=== PATIENT | female | born 1955 | race American Indian/Alaskan Native ===

== ENCOUNTER 2018-10-25 17:05 | Inpatient (IN) | payer BC ==
--- NOTE | 2018-10-25 17:16 | Emergency Department Report ---
Blank Doc - Documentation Documentation: 63 y/o female referred to the ER by her Oncologist for admission. Concern for mets.
[2018-10-25 20:21] LABS: Basophils # (Auto) 0.1 K/mm3 (0.0-0.1); Basophils % (Auto) 1.1 % (0.0-1.8); Eosinophils % (Auto) 0.1 % (0.0-4.3); Hematocrit 46.1 % (30.3-42.9); Hemoglobin 15.5 gm/dl (10.1-14.3); Lymphocytes # (Auto) 1.6 K/mm3 (1.2-5.4); Lymphocytes % (Auto) 20.1 % (13.4-35.0); Mean Corpuscular HGB Conc 34 % (30-34); Mean Corpuscular Volume 93 fl (79-97); Monocytes % (Auto) 12.8 % (0.0-7.3); Platelet Count 203 K/mm3 (140-440); Red Blood Count 4.97 M/mm3 (3.65-5.03); Red Cell Distribution Width 15.8 % (13.2-15.2)
[2018-10-25 20:42] LABS: Alanine Aminotransferase 102 units/L (7-56); Albumin 2.8 g/dL (3.9-5); BUN/Creatinine Ratio 14; Blood Urea Nitrogen 11 mg/dL (7-17); Calcium 9.6 mg/dL (8.4-10.2); Hemolysis Index 35
--- NOTE | 2018-10-25 21:48 | Cat Scan Report ---
PROCEDURE: CT abdomen and pelvis with contrast. TECHNIQUE: Computerized axial tomography of the abdomen and pelvis was performed after the IV inject ion of iodinated nonionic contrast. CT DOSE LENGTH PRODUCT: 2465.4 mGycm HISTORY: Right upper quadrant abdominal pain. Outpatient ultrasound showed possible liver metastases. COMPARISONS: None. FINDINGS: There is a small pleural-based nodule located laterally in the right middle lobe. This is seen on star ge 11 of series 2. This measures 9.2 mm x 6.5 mm in cross-section. It is an indeterminate finding. Th ere are no pleural effusions. The heart size is normal. The breasts are incompletely imaged and I can not do a complete comparison from side to side. There is some solid tissue in the lower half of the l eft breast. There are some calcifications present. This could represent a breast neoplasm. The mass m easures approximately 4.1 cm x 2.1 cm in cross-section. Further evaluation is recommended. There are multiple focal masses of lower attenuation in the liver. The margins of these masses enhance. These a re consistent with extensive metastases. The gallbladder is present. There is no biliary dilatation. The pancreas appears normal. The spleen appears normal. The adrenal glands are not enlarged. Both kid neys appear normal in size and configuration. The abdominal aorta has a normal caliber. There is athe rosclerotic calcification in the abdominal aorta and iliac arteries. There is no retroperitoneal sheri opathy. There are numerous diverticula in the descending colon and sigmoid colon. There are no signs of acute diverticulitis. A normal appendix is visible. The bladder, uterus and adnexal regions appear normal. There is a small amount of free fluid in the pelvis. The regional skeleton appears intact. IMPRESSION: Possible left breast neoplasm with further evaluation recommended. Small indeterminate n odule in the right middle lobe. Extensive metastatic disease involving the liver. Moderately severe l eft sided colonic diverticulosis. Small amount of free fluid in the pelvis. This document is electronically signed by Alton Doyle MD., Oct 25 2018 09:46:04 PM ET
--- NOTE | 2018-10-25 21:54 | Cat Scan Report ---
PROCEDURE: CT HEAD/BRAIN WO CON TECHNIQUE: Spiral CT imaging of the brain was obtained without IV contrast enhancement. HISTORY: headaches COMPARISONS: None FINDINGS: Brain: There is no evidence of intracranial hemorrhage. No parenchymal hemorrhage is seen. No mass lesions or mass effect is identified. No abnormal extra-axial fluid collections or masses are seen. There is mild nonspecific mineralization of the basal ganglia. There is some decreased density seen in the periventricular white matter without mass effect. This i s fairly symmetric and does not exhibit any mass effect consistent with gliosis probably on the basis of microvascular disease or white matter changes of aging. Ventricles: The ventricles are normal size and midline. Sulcal pattern and fissures are mildly promi nent.. Bone Windows: No evidence of fracture. Paranasal sinuses: Clear. Mastoid air cells: Clear. IMPRESSION: There is mild atrophy. Examination otherwise is unremarkable. This document is electronically signed by Link Urrutia MD., Oct 25 2018 09:52:35 PM ET
--- NOTE | 2018-10-25 22:47 | Emergency Department Report ---
ED Abdominal Pain HPI - General Chief Complaint: Medical Clearance Stated Complaint: REQUEST TO CHECK IN Time Seen by Provider: 10/25/18 18:22 Source: patient Mode of arrival: Ambulatory Limitations: No Limitations - History of Present Illness Initial Comments: Patient is a 63-year-old female who was sent in by Dr. Trujillo her seo specialist because of abnormal findings he found on an ultrasound of her abdomen. Patient sees Dr. 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 Patient had been complaining of some vague epigastric right upper quadrant discomfort. Dr. Johns was concerned after reviewing the ul trasound which showed an enlarged liver with multiple ill-defined hypoechoic area suspicious for hepatic metastases. Was also multiple gallstones and biliary sludge and thickening of the gallbladder wall. Patient had this ultrasound performed on October 17. Patient denies nausea vomiting diarrhea f don or chills Severity scale (0 -10): 0 - Related Data Allergies Allergy/AdvReac Type Severity Reaction Status Date / Time Penicillins Allergy Unknown Verified 10/25/18 17:06 ED Review of Systems ROS: Stated complaint: REQUEST TO CHECK IN Other details as noted in HPI Comment: All other systems reviewed and negative ED Past Medical Hx - Past Medical History Hx Hypertension: Yes Additional medical history: LESIONS ON LIVER/ GALLSTONES - Surgical History Additional Surgical History: ANKLE - Social History Smoking Status: Never Smoker Substance Use Type: None ED Physical Exam - General Limitations: No Limitations General appearance: alert, in no apparent distress - Head Head exam: Present: atraumatic, normocephalic - Eye Eye exam: Present: normal appearance - ENT ENT exam: Present: mucous membranes moist - Neck Neck exam: Present: normal inspection - Respiratory Respiratory exam: Present: normal lung sounds bilaterally. Absent: respiratory distress, wheezes, rales, rhonchi - Cardiovascular Cardiovascular Exam: Present: regular rate, normal rhythm. Absent: systolic murmur, diastolic murmur, rubs, gallop - GI/Abdominal GI/Abdominal exam: Present: soft, tenderness (mild tenderness of the ruq), normal bowel sounds. Absent: distended, guarding, rebound, rigid - Extremities Exam Extremities exam: Present: normal inspection - Back Exam Back exam: Present: normal inspection - Neurological Exam Neurological exam: Present: alert, oriented X3 - Psychiatric Psychiatric exam: Present: normal affect, normal mood - Skin Skin exam: Present: warm, dry, intact, normal color. Absent: rash ED Course Vital Signs 10/25/18 10/25/18 10/25/18 17:23 20:32 20:33 Temperature 98.0 F Pulse Rate 99 H 97 H Respiratory 16 18 Rate Blood Pressure 122/69 Blood Pressure 144/83 [Left] O2 Sat by Pulse 97 97 97 Oximetry 10/25/18 10/25/18 10/25/18 20:46 21:46 22:00 Temperature Pulse Rate Respiratory Rate Blood Pressure 144/83 146/86 129/79 Blood Pressure [Left] O2 Sat by Pulse 96 97 94 Oximetry ED Medical Decision Making - Lab Data Result diagrams: 10/25/18 19:49 10/25/18 19:49 Lab Results 10/25/18 10/25/18 Range/Units 19:49 19:49 WBC 8.1 (4.5-11.0) K/mm3 RBC 4.97 (3.65-5.03) M/mm3 Hgb 15.5 H (10.1-14.3) gm/dl Hct 46.1 H (30.3-42.9) % MCV 93 (79-97) fl MCH 31 (28-32) pg MCHC 34 (30-34) % RDW 15.8 H (13.2-15.2) % Plt Count 203 (140-440) K/mm3 Lymph % (Auto) 20.1 (13.4-35.0) % [place] % (Auto) 12.8 H (0.0-7.3) % Eos % (Auto) 0.1 (0.0-4.3) % Baso % (Auto) 1.1 (0.0-1.8) % Lymph # 1.6 (1.2-5.4) K/mm3 [place] # 1.0 H (0.0-0.8) K/mm3 Eos # 0.0 (0.0-0.4) K/mm3 Baso # 0.1 (0.0-0.1) K/mm3 Seg Neutrophils % 65.9 (40.0-70.0) % Seg Neutrophils # 5.4 (1.8-7.7) K/mm3 Sodium 136 L (137-145) mmol/L Potassium 4.7 (3.6-5.0) mmol/L Chloride 98.5 (98-107) mmol/L Carbon Dioxide 19 L (22-30) mmol/L Anion Gap 23 mmol/L BUN 11 (7-17) mg/dL Creatinine 0.8 (0.7-1.2) mg/dL Estimated GFR > 60 ml/min BUN/Creatinine Ratio 14 % Glucose 77 (65-100) mg/dL Calcium 9.6 (8.4-10.2) mg/dL Total Bilirubin 2.30 H (0.1-1.2) mg/dL AST 382 H (5-40) units/L ALT 102 H (7-56) units/L Alkaline Phosphatase 567 H (35-129) units/L Total Protein 7.2 (6.3-8.2) g/dL Albumin 2.8 L (3.9-5) g/dL Albumin/Globulin Ratio 0.6 % Lipase 57 (13-60) units/L - Radiology Data [facility] [address] [place] [address] Cat Scan Report Signed Patient: SKYE BAKER MR#: [id number] : 1955 Acct:[id number] Age/Sex: 63 / F ADM Date: 10/25/18 Loc: ED Attending Dr: Ordering Physician: CHAY ALLEN MD Date of Service: 10/25/18 Procedure(s): CT head/brain wo con Accession Number(s): [id number] cc: CHAY ALLEN MD PROCEDURE: CT HEAD/BRAIN WO CON TECHNIQUE: Spiral CT imaging of the brain was obtained without IV contrast enhancement. HISTORY: headaches COMPARISONS: None FINDINGS: Brain: There is no evidence of intracranial hemorrhage. No parenchymal hemorrhage is seen. No mass lesions or mass effect is identified. No abnormal extra-axial fluid collections or masses are seen. There is mild nonspecific mineralization of the basal ganglia. There is some decreased density seen in the periventricular white matter without mass effect. This is fairly symmetric and does not exhibit any mass effect consistent with gliosis probably on the basis of microvascular disease or white matter changes of aging. Ventricles: The ventricles are normal size and midline. Sulcal pattern and fissures are mildly prominent.. Bone Windows: No evidence of fracture. Paranasal sinuses: Clear. Mastoid air cells: Clear. IMPRESSION: There is mild atrophy. Examination otherwise is unremarkable. This document is electronically signed by Link Martinez MD., Oct 25 2018 09:52:35 PM ET Transcribed By: DFN Dictated By: LINK MARTINEZ MD Electronically Authenticated By: LINK MARTINEZ MD Signed Date/Time: 10/25/18 2154 [facility] [address] [place] [address] Cat Scan Report Signed Patient: SKYE BAKER MR#: [id number] : 1955 Acct:[id number] Age/Sex: 63 / F ADM Date: 10/25/18 Loc: ED Attending Dr: Ordering Physician: CHAY ALLEN MD Date of Service: 10/25/18 Procedure(s): CT abdomen pelvis w con Accession Number(s): [id number] cc: CHAY ALLEN MD PROCEDURE: CT abdomen and pelvis with contrast. TECHNIQUE: Computerized axial tomography of the abdomen and pelvis was performed after the IV injection of iodinated nonionic contrast. CT DOSE LENGTH PRODUCT: 2465.4 mGycm HISTORY: Right upper quadrant abdominal pain. Outpatient ultrasound showed possible liver metastases. COMPARISONS: None. FINDINGS: There is a small pleural-based nodule located laterally in the right middle lobe. This is seen on image 11 of series 2. This measures 9.2 mm x 6.5 mm in cross-section. It is an indeterminate findi ng. There are no pleural effusions. The heart size is normal. The breasts are incompletely imaged and I cannot do a complete comparison from side to side. There is some solid tissue in the lower half of the left breast. There are some calcifications present. This could represent a breast neoplasm. The mass measures approximately 4.1 cm x 2.1 cm in cross- section. Further evaluation is recommended. There are multiple focal masses of lower attenuation in the liver. The margins of these masses enhance. These are consistent with extensive metastases. The gallbladder is present. There is no biliary dilatation. The pancreas appears normal. The spleen appears normal. The adrenal glands are not enlarged. Both kidneys appear normal in size and configuration. The abdominal aorta has a normal caliber. There is atherosclerotic calcification in the abdominal aorta and iliac arteries. There is no retroperitoneal adenopathy. There are numerous diverticula in the descending colon and sigmoid colon. There are no signs of acute diverticulitis. A normal appendix is visible. The bladder, uterus and adnexal regions appear normal. There is a small amount of free fluid in the pelvis. The regional skeleton appears intact. IMPRESSION: Possible left breast neoplasm with further evaluation recommended. Small indeterminate nodule in the right middle lobe. Extensive metastatic disease involving the liver. Moderately severe left sided colonic diverticulosis. Small amount of free fluid in the pelvis. This document is electronically signed by Alton Zuniga MD., Oct 25 2018 09:46:04 PM ET Transcribed By: BART Dictated By: ALTON ZUNIGA MD Electronically Authenticated By: ALTON ZUNIGA MD Signed Date/Time: 10/25/182147 DD/ 27 TD/TT: 10/25/182127 - Medical Decision Making Patient's CT of abdomen and pelvis shows that she has hematocrit hepatomegaly with multiple metastatic lesions. Patient also has a large mass in the left lower breast. When has had the patient had any pain in this area she states that 2 nights ago while turning over in bed she did fill a sharp pain in the left breast. She points to the area that is consistent with the area of mass from CT. In speaking with Dr. Johns patient is to be admitted to the hospital for possible liver biopsy in the morning. Patient to be admitted to the hospitalist service under Dr. Chávez. Critical care attestation.: If time is entered above; I have spent that time in minutes in the direct care of this critically ill patient, excluding procedure time. ED Disposition Clinical Impression: Elevated transaminase level, Hyperbilirubinemia, Breast mass, Liver metastases Disposition: OP ADMIT IP TO THIS HOSP Is pt being admited?: Yes Does the pt Need Aspirin: No Condition: Stable Time of Disposition: 22:51
[2018-10-25 23:09] LABS: Bilirubin,Urine NEG (Negative); Blood,Urine NEG (Negative); Color,Urine Amber (Yellow); Mucus,Urine FEW /HPF; Protein,Urine <15 mg/dL mg/dL (Negative)
[2018-10-25] MEDS ORDERED: ZOFRAN IV PRN (23:25)
[2018-10-25] MEDS ORDERED: SODIUM CHLORIDE FLUSH SYRINGE 10 ML IV PRN (23:25)
[2018-10-25] MEDS ORDERED: MORPHINE IV PRN (23:27)
[2018-10-25] MEDS ORDERED: NACL 0.9% 1000 ML 1,000 ML IV SCH (23:45)
--- NOTE | 2018-10-26 | History and Physical Report ---
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 Trujillo to the ED for further evaluation with abdominal CT scan due to abnormal liver findings seen on abdominal ultrasound. She complained of left-sided headache of a month duration, which she rated 8-10. She also has intermittent epigastric pain and she reported noticing a lump in her left breast about 2 days ago. She denies nausea, vomiting, lightheadedness, blurry vision, syncope or loss of consciousness. No constipation, diarrhea, bleeding from any orifice, dysuria or frequency. No chest pain, shortness of breath, palpitation, fever, chills, sore throats, runny nose or congestion, leg swelling, orthopnea or PND. CT abdomen/pelvis done in the ED showed left breast mass suspicious for malignancy with metastasis to the liver. Per pt, her last mammogram was 5 years ago which was normal. She also reported that she had a breast biopsy around 2007 at [facility] which was reported as negative for malignancy. Onco logy recommended admitting the pt for possible biopsy in am due to the extensive disease. Past History Past Medical History: other (vitamin B12 deficiency) Past Surgical History: Other (right ankle surgery, breast biopsy) Social history: other (patient has a remote history of cigarette smoking. She quit more than 20 years ago. She has history of moderate alcohol consumption, she usually have a cocktail every day after work but quit 2 weeks ago. She admits to occasional marijuana use but stated that she quit 2 weeks ago) Family history: other (A grand-aunt had history of breast cancer at an unknown age. No other known family history of cancer) Medications and Allergies Allergies Allergy/AdvReac Type Severity Reaction Status Date / Time Penicillins Allergy Unknown Verified 10/25/18 17:06 Home Medications Medication Instructions Recorded Confirmed Last Taken Type Cyanocobalamin (Vitamin B-12) 5,000 mcg PO DAILY 10/25/18 10/25/18 Unknown History [Vitamin B12] Metoprolol [Lopressor] 25 mg PO BID 10/25/18 10/25/18 Unknown History Active Meds: Active Medications Acetaminophen (Tylenol) 650 mg PO Q4H PRN PRN Reason: Pain MILD(1-3)/Fever >100.5/BARNETT Enoxaparin Sodium (Lovenox) 40 mg SUB-Q QDAY HEENA Sodium Chloride (Nacl 0.9% 1000 Ml) 1,000 mls @ 100 mls/hr IV DIRECT HEENA Morphine Sulfate (Morphine) 2 mg IV Q4H PRN PRN Reason: Pain, Moderate (4-6) Ondansetron HCl (Zofran) 4 mg IV Q8H PRN PRN Reason: Nausea And Vomiting Sodium Chloride (Sodium Chloride Flush Syringe 10 Ml) 10 ml IV BID HEENA Sodium Chloride (Sodium Chloride Flush Syringe 10 Ml) 10 ml IV PRN PRN PRN Reason: LINE FLUSH Review of Systems All systems: negative (except as documented in the HPI, all other systems were reviewed and negative) Exam - Constitutional Vitals: Temp Pulse Resp BP Pulse Ox 98.0 F 97 H 18 129/79 94 10/25/18 17:23 10/25/18 20:33 10/25/18 20:33 10/25/18 22:00 10/25/18 22:00 General appearance: Present: no acute distress, well-nourished - EENT Eyes: Present: PERRL, EOM intact ENT: hearing intact, clear oral mucosa - Neck Neck: Present: supple, normal ROM - Respiratory Respiratory effort: normal Respiratory: bilateral: CTA - Cardiovascular Rhythm: regular Heart Sounds: Present: S1 & S2. Absent: rub, click - Extremities Extremities: pulses symmetrical, No edema Peripheral Pulses: within normal limits - Abdominal General gastrointestinal: Present: soft, tender (epigastric), non-distended, normal bowel sounds, hepatomegaly Female genitourinary: Present: deferred - Integumentary Integumentary: Present: clear, warm, dry - Musculoskeletal Musculoskeletal: gait normal, strength equal bilaterally - Psychiatric Psychiatric: appropriate mood/affect, intact judgment & insight - Neurologic Neurologic: CNII-XII intact, moves all extremities Results - Labs CBC & Chem 7: 10/25/18 19:49 10/25/18 19:49 Labs: Laboratory Last Values WBC 8.1 K/mm3 (4.5-11.0) 10/25/18 19:49 RBC 4.97 M/mm3 (3.65-5.03) 10/25/18 19:49 Hgb 15.5 gm/dl (10.1-14.3) H 10/25/18 19:49 Hct 46.1 % (30.3-42.9) H 10/25/18 19:49 MCV 93 fl (79-97) 10/25/18 19:49 MCH 31 pg (28-32) 10/25/18 19:49 MCHC 34 % (30-34) 10/25/18 19:49 RDW 15.8 % (13.2-15.2) H 10/25/18 19:49 Plt Count 203 K/mm3 (140-440) 10/25/18 19:49 Lymph % (Auto) 20.1 % (13.4-35.0) 10/25/18 19:49 [place] % (Auto) 12.8 % (0.0-7.3) H 10/25/18 19:49 Eos % (Auto) 0.1 % (0.0-4.3) 10/25/18 19:49 Baso % (Auto) 1.1 % (0.0-1.8) 10/25/18 19:49 Lymph # 1.6 K/mm3 (1.2-5.4) 10/25/18 19:49 [place] # 1.0 K/mm3 (0.0-0.8) H 10/25/18 19:49 Eos # 0.0 K/mm3 (0.0-0.4) 10/25/18 19:49 Baso # 0.1 K/mm3 (0.0-0.1) 10/25/18 19:49 Seg Neutrophils % 65.9 % (40.0-70.0) 10/25/18 19:49 Seg Neutrophils # 5.4 K/mm3 (1.8-7.7) 10/25/18 19:49 Sodium 136 mmol/L (137-145) L 10/25/18 19:49 Potassium 4.7 mmol/L (3.6-5.0) 10/25/18 19:49 Chloride 98.5 mmol/L (98-107) 10/25/18 19:49 Carbon Dioxide 19 mmol/L (22-30) L 10/25/18 19:49 Anion Gap 23 mmol/L 10/25/18 19:49 BUN 11 mg/dL (7-17) 10/25/18 19:49 Creatinine 0.8 mg/dL (0.7-1.2) 10/25/18 19:49 Estimated GFR > 60 ml/min 10/25/18 19:49 BUN/Creatinine Ratio 14 % 10/25/18 19:49 Glucose 77 mg/dL (65-100) 10/25/18 19:49 Calcium 9.6 mg/dL (8.4-10.2) 10/25/18 19:49 Total Bilirubin 2.30 mg/dL (0.1-1.2) H 10/25/18 19:49 AST 382 units/L (5-40) H 10/25/18 19:49 ALT 102 units/L (7-56) H 10/25/18 19:49 Alkaline Phosphatase 567 units/L (35-129) H 10/25/18 19:49 Total Protein 7.2 g/dL (6.3-8.2) 10/25/18 19:49 Albumin 2.8 g/dL (3.9-5) L 10/25/18 19:49 Albumin/Globulin Ratio 0.6 % 10/25/18 19:49 Lipase 57 units/L (13-60) 10/25/18 19:49 Urine Color [place] (Yellow) 10/25/18 22:34 Urine Turbidity Slightly-cloudy (Clear) 10/25/18 22:34 Urine pH 5.0 (5.0-7.0) 10/25/18 22:34 Ur Specific [place] 1.060 (1.003-1.030) H 10/25/18 22:34 Urine Protein <15 mg/dl mg/dL (Negative) 10/25/18 22:34 Urine Glucose (UA) Neg mg/dL (Negative) 10/25/18 22:34 Urine Ketones 20 mg/dL (Negative) 10/25/18 22:34 Urine Blood Neg (Negative) 10/25/18 22:34 Urine Nitrite Neg (Negative) 10/25/18 22:34 Urine Bilirubin Neg (Negative) 10/25/18 22:34 Urine Urobilinogen 4.0 mg/dL (<2.0) 10/25/18 22:34 Ur Leukocyte Esterase Neg (Negative) 10/25/18 22:34 Urine WBC (Auto) 2.0 /HPF (0.0-6.0) 10/25/18 22:34 Urine RBC (Auto) 10.0 /HPF (0.0-6.0) 10/25/18 22:34 U Epithel Cells (Auto) 9.0 /HPF (0-13.0) 10/25/18 22:34 Urine Mucus Few /HPF 10/25/18 22:34 - Imaging and Cardiology CT scan - abdomen: report reviewed CT Scan - head: report reviewed Assessment and Plan Assessment and plan: New possible left breast malignancy with liver metastasis -IR consulted for possible liver biopsy in am Chronic headaches -CT head negative for metastasis -On PRN narcotics Transaminitis -Likely due to the liver metastasis Metabolic acidosis -We'll hydrate patient and monitor her bicarbonate level Megaloblastic anemia due to vitamin B12 deficiency -Stable Patient will be placed in observation status with plan for discharge post liver biopsy. TIME SPENT: 35 minutes
[2018-10-26] MEDS: TYLENOL PO PRN ×2 (01:03→14:37)
[2018-10-26 05:37] LABS: Alanine Aminotransferase 91 units/L (7-56); Albumin 2.5 g/dL (3.9-5); BUN/Creatinine Ratio 18; Blood Urea Nitrogen 11 mg/dL (7-17); Calcium 9.6 mg/dL (8.4-10.2); Hemolysis Index 24
[2018-10-26] MEDS ORDERED: LOVENOX SUB-Q SCH (10:00)
[2018-10-26] MEDS ORDERED: SODIUM CHLORIDE FLUSH SYRINGE 10 ML IV SCH (10:00)
[2018-10-26] MEDS ORDERED: VERSED IV ONE (11:04)
[2018-10-26] MEDS ORDERED: SUBLIMAZE IV ONE (11:04)
[2018-10-26] MEDS ORDERED: SUBLIMAZE ONE (11:10)
[2018-10-26] MEDS ORDERED: XYLOCAINE 1% 20 mL ONE (11:16)
[2018-10-26] MEDS ORDERED: GELFOAM 12 X 7 TP ONE (11:25)
[2018-10-26] MEDS ORDERED: PNEUMOVAX 23 IM ONE (12:00)
[2018-10-26] MEDS ORDERED: AFLURIA QUAD 2018-2019 SYRINGE IM ONE (12:00)
[2018-10-26 12:33] VITALS: BP 138/81
--- NOTE | 2018-10-26 13:52 | Discharge Summary ---
Providers - Providers Date of Admission: 10/26/18 11:54 Attending physician: LEE ANGELO MD 10/25/18 23:30 Consult to Interventional Radiology [CONS] Routine Consulting Provider: LAURY MOULTON Reason For Exam: new metastatic liver disease for liver biopsy Place consult to:: DAHLIASULT WAS CALLED TO DR. MOULTON Notified:: BETTE Phone number called:: [phone] Was contact made?: Yes If yes, spoke with:: FADI Time called:: 10:30 Comment:: DANAE 10/26/18 04:34 Consult to Dietitian/Nutrition [CONS] Routine Physician Instructions: Reason For Exam: Reason for Consult: Malnutrition Primary care physician: DYLAN MICHAELS Hospitalization Condition: Stable Hospital course: 63 year old woman with history of megaloblastic anemia due to vitamin B12 deficiency who was sent by a pot lining supervisor to the hospital after evaluating an abnormal CT scan these two abnormal liver findings. The patient was admitted for liver biopsy. She had liver biopsy, procedures on eventful. She will follow up with her oncologist for results of the pathology Diagnosis liver Mass megaloblastic anemia Disposition: - TO HOME OR SELFCARE Time spent for discharge: 33 mins, Core Measure Documentation - Palliative Care Palliative Care/ Comfort Measures: Not Applicable - Core Measures Any of the following diagnoses?: none Exam - Constitutional Vitals: Temp Pulse Resp BP Pulse Ox 97.5 F L 84 21 138/81 95 10/26/18 07:21 10/26/18 12:32 10/26/18 12:32 10/26/18 12:32 10/26/18 12:32 General appearance: Present: no acute distress, well-nourished - EENT Eyes: Present: PERRL ENT: hearing intact, clear oral mucosa - Neck Neck: Present: supple, normal ROM - Respiratory Respiratory effort: normal Respiratory: bilateral: CTA - Cardiovascular Heart Sounds: Present: S1 & S2. Absent: rub, click - Extremities Extremities: pulses symmetrical, No edema Peripheral Pulses: within normal limits - Abdominal General gastrointestinal: Present: soft, non-tender, non-distended, normal bowel sounds Female genitourinary: Present: normal - Integumentary Integumentary: Present: clear, warm, dry - Musculoskeletal Musculoskeletal: gait normal, strength equal bilaterally - Psychiatric Psychiatric: appropriate mood/affect, intact judgment & insight - Neurologic Neurologic: CNII-XII intact, moves all extremities Plan Follow up with: DYLAN MICHAELS MD [Primary Care Provider] - 7 Days Prescriptions: oxyCODONE /ACETAMINOPHEN [Percocet 5/325] 1 tab PO Q6HR PRN #14 tablet PRN Reason: Pain
--- NOTE | 2018-10-26 15:43 | Cat Scan Report ---
Exam: CT-guided liver biopsy Clinical indication: Patient with diffusely metastatic disease D.: 10/26/18 Procedure: Following an explanation of the risks, benefits and alternatives; written informed consent was obtained. The patient will go to the CT suite and placed on position on the CT gantry. Initial bander operator image of the abdomen were performed at appropriate site was chosen. The patient's abdomen along the midline was prepped and draped in the usual sterile fashion. 1% Xylocaine was used for anesthesia. Using intermittent CT guidance, a 10 cm 17-gauge trocar needle was advanced adjacent to a mass in the liver. A 18-gauge biopsy needle was then used to obtain 2 core biopsies which were handed off to pathologist in attendance. The samples were determined to be adequate for pathologic analysis. The track was embolized with Gelfoam pledgets. The needle was then completely withdrawn and post procedure imaging demonstrated no significant hemoperitoneum. The patient tolerated the procedure well. There were no immediate post procedure complications. Conscious sedation was performed under the guidance radiologic nursing. Continuous cardiopulmonary monitoring was utilized. Impression: CT-guided liver biopsy with 2 core samples obtained and sent for pathologic analysis. The samples were determined to be adequate.
== END 2018-10-26 15:00 | disposition home or self-care (01) | DRG 436 ==
LOC: ED 17:05 → 2B-ACE 23:25 → OBSVTOIN 10-26 11:54
PROVIDERS: ADMIT Internal Medicine; ATTEND Internal Medicine
PROC: 0FB03ZX Excision of Liver, Percutaneous Approach, Diagnostic (ICD-10-PCS; principal; 2018-10-26)
PROC: 3E0234Z Introduction of Serum, Toxoid and Vaccine into Muscle, Percutaneous Approach (ICD-10-PCS; 2018-10-26)
DX: C78.7 Secondary malignant neoplasm of liver and intrahepatic bile duct (principal); E87.2 Acidosis; K76.89 Other specified diseases of liver; E80.6 Other disorders of bilirubin metabolism; I10 Essential (primary) hypertension; C80.1 Malignant (primary) neoplasm, unspecified; R74.0 Nonspecific elevation of levels of transaminase and lactic acid dehydrogenase [LDH]; D53.1 Other megaloblastic anemias, not elsewhere classified; Z88.0 Allergy status to penicillin; Z23 Encounter for immunization
CPT/HCPCS: 36415; 47000; 70450; 74177; 77012; 80053; 81001; 83690; 85025; 88172; 88173; 88307; 88333; 88341; 88342; 90686; 90732; G0378; A4649; J2250; J3010; J7030; Q9967

== ENCOUNTER 2018-11-08 05:57 | Day surgery (SDC) | payer BC ==
[2018-11-08] MEDS ORDERED: NACL BACTERIOSTATIC INFILTRATI ONE (06:31)
[2018-11-08] MEDS ORDERED: VANCOMYCIN/NS 1 GM/250 ML 1 GM/250 ML BAG IV NR (07:00)
[2018-11-08] MEDS ORDERED: LACTATED RINGERS 1,000 ML IV SCH (07:00)
[2018-11-08] MEDS ORDERED: MARCAINE 0.25% INFILTRATI ONE ×3 (07:09→08:00)
[2018-11-08] MEDS ORDERED: HEPARIN 10,000 UNITS/10 ML ONE (07:10)
[2018-11-08] MEDS ORDERED: XYLOCAINE 1% 20 mL ONE (07:10)
[2018-11-08] MEDS ORDERED: NACL 0.9% 100 ML ONE (07:10)
[2018-11-08] MEDS ORDERED: PROVENTIL IH NR (07:15)
[2018-11-08] MEDS ORDERED: SUBLIMAZE ONE (07:23)
[2018-11-08] MEDS ORDERED: DIPRIVAN 10 MG/ML IV ONE (07:23)
[2018-11-08] MEDS ORDERED: XYLOCAINE MPF 2% ONE (07:23)
[2018-11-08] MEDS ORDERED: XYLOCAINE 1% 20 mL INFILTRATI ONE ×2 (08:00)
[2018-11-08] MEDS ORDERED: DILAUDID IV PRN (08:10)
[2018-11-08] MEDS ORDERED: ZOFRAN IV PRN (08:10)
--- NOTE | 2018-11-08 08:10 | Anesthesia Day of Surgery ---
Anesthesia Day of Surgery - Day of Surgery Patient Examined: Yes Patient H&P Reviewed: Yes Patient is NPO: Yes
--- NOTE | 2018-11-08 08:10 | Anesthesia Consultation ---
Anesthesia Consult and Med Hx - Airway Anesthetic Teeth Evaluation: Dentures ROM Head & Neck: Adequate Mental/Hyoid Distance: Adequate Mallampati Class: Class II Intubation Access Assessment: Good - Pulmonary Exam CTA: Yes - Cardiac Exam Cardiac Exam: RRR - Pre-Operative Health Status ASA Pre-Surgery Classification: ASA3 Proposed Anesthetic Plan: General (Patient with HTN, breast Ca, jaundiced form liver Mets for GA) - Pulmonary Hx Smoking: Yes (STARTED IN COLLEGE; QUIT 1997) - Cardiovascular System Hx Hypertension: Yes (09/2018) - Central Nervous System Hx Psychiatric Problems: No - Endocrine Hx Liver Disease: Yes (LESIONS) Hx Hyperthyroidism: Yes (TREATED WITH MEDS AND RESOLVED; ) - Other Systems Hx Alcohol Use: Yes Hx Substance Use: Yes (MARIJUANA) Hx Cancer: Yes
[2018-11-08] MEDS ORDERED: NACL 0.9% IV ONE (08:13)
[2018-11-08] MEDS ORDERED: HEPARIN 10,000 UNITS/10 ML IV ONE ×2 (08:13→08:36)
[2018-11-08] MEDS ORDERED: NEO SYNEPHRINE/NS Syringe(OR USE) IV ONE (09:01)
[2018-11-08] MEDS ORDERED: ZOFRAN ONE (09:01)
--- NOTE | 2018-11-08 09:01 | Short Stay Summary ---
Short Stay Documentation Date of service: 11/08/18 - History Principal diagnosis: metastatic left breat cancer H&P: obtained from office - Allergies and Medications Current Medications: Allergies Penicillins Allergy (Verified 11/05/18 17:28) Unknown as a child Home Medications Medication Instructions Recorded Confirmed Last Taken Type Cyanocobalamin (Vitamin B-12) 5,000 mcg PO DAILY 10/25/18 11/08/18 11/07/18 History [Vitamin B12] Metoprolol [Lopressor TAB] 25 mg PO BID 10/25/18 11/08/18 11/08/18 03:30 History Multivit-Minerals/Folic Acid [One 0.4 mg PO DAILY 11/05/18 11/08/18 11/07/18 History Daily Womens 50 Plus Tab] Active Medications Albuterol (Proventil) 2.5 mg IH PREOP NR Stop: 11/08/18 23:59 Last Admin: 11/08/18 07:08 Dose: 2.5 mg Documented by: Hydromorphone HCl (Dilaudid) 0.25 mg IV Q10MIN PRN PRN Reason: Pain, Moderate (4-6) Stop: 11/08/18 16:00 Lactated Ringer's (Lactated Ringers) 1,000 mls @ 100 mls/hr IV DIRECT HEENA Last Admin: 11/08/18 06:39 Dose: 100 mls/hr Documented by: Vancomycin HCl (Vancomycin/Ns 1 Gm/250 Ml) 1 gm in 250 mls @ 166.667 mls/hr IV PREOP NR; Protocol Stop: 11/08/18 23:59 Last Admin: 11/08/18 07:09 Dose: 166.667 mls/hr Documented by: Ondansetron HCl (Zofran) 4 mg IV ONCE PRN PRN Reason: Nausea And Vomiting Stop: 11/08/18 16:00 - Brief post op/procedure progress note Date of procedure: 11/08/18 Pre-op diagnosis: metastatic left breast cancer Post-op diagnosis: same Procedure: right internal jugular port a cath placement with mindray ultrasound guidance, fluoroscopy Anesthesia: GETA, local Findings: good placement of port without PTX on post op CXR Surgeon: LEI EDUARDO Estimated blood loss: minimal Pathology: none Condition: stable - Hospital course Hospital course: Pt observed in PACU and discharged to home in stable condition - Disposition Condition at discharge: Good Disposition: DC-01 TO HOME OR SELFCARE Short Stay Discharge Plan Activity: other (no driving if taking prescription pain medication) Diet: regular Wound: open to air, per your surgeon's advice Additional Instructions: SEE PRINTED DISCHARGE INSTRUCTIONS Follow up with: DYLAN MICHAELS MD [Primary Care Provider] - 7 Days LEI EDUARDO DO [Staff Physician] - 14 Days Prescriptions: Ibuprofen [Motrin 800 MG tab] 800 mg PO Q8HR PRN #30 tablet PRN Reason: Pain, Moderate (4-6) HYDROcodone/APAP 5-325 [[place] 5/325] 1 each PO Q6HR PRN #10 tablet PRN Reason: Pain , Severe (7-10)
--- NOTE | 2018-11-08 09:16 | Fluoroscopy Report ---
AP CHEST: HISTORY: Breast cancer, Rwqedo-k-Wtzf insertion A right IJ Qkoikw-v-Ayid has been inserted which terminates in the superior right atrium. No pneumothorax. AP view of the chest demonstrates a normal mediastinal and cardiac contour with clear lungs and normal bony and soft tissue structures. IMPRESSION: Unremarkable AP chest.
[2018-11-08] MEDS ORDERED: NORCO 5/325 ONE (09:57)
[2018-11-08] MEDS ORDERED: NORCO 5/325 PO PRN (10:00)
--- NOTE | 2018-11-08 10:06 | Post Anesthesia Evaluation ---
- Post Anesthesia Evaluation Patient Participated: Yes Airway Patent: Yes Stable Respiratory Function: Yes Nausea/Vomiting: No Temp > 96.8F: Yes Pain Manageable: Yes Block Receding Appropriately: Not Applicable Patient on Ventilator: No
[2018-11-08 10:22] VITALS: BP 100/55
--- NOTE | 2018-11-08 18:26 | Operative Report ---
PREOPERATIVE DIAGNOSIS: Metastatic left breast cancer. POSTOPERATIVE DIAGNOSIS: Metastatic left breast cancer. PROCEDURE: Right internal jugular Port-A-Cath placement with mindray ultrasound guidance, fluoroscopy. ANESTHESIA: General endotracheal anesthesia, local. FINDINGS: Good placement of port without pneumothorax and postop chest x-ray. SURGEON: Diane Valentino DO ESTIMATED BLOOD LOSS: Minimal. PATHOLOGY: None. CONDITION DISPOSITION: The patient is stable to PACU. HISTORY OF PRESENT ILLNESS: The patient is a 63-year-old female who was seen by Dr. Freeman of Oncology as an outpatient. The patient has been diagnosed with left-sided breast cancer with the metastasis to the liver. She is deemed a candidate for chemotherapy per Dr. Perez and a Port-A-Cath was requested. The patient was seen in the office and all risks, benefits and alternatives to surgery were discussed with her and questions answered. Consent was obtained. PROCEDURE IN DETAIL: The patient was identified in the preoperative area and taken back to the operating room and placed on the operating table in supine position. After anesthesia was induced, the bilateral upper chest and neck were prepped and draped in the usual sterile fashion. A timeout was performed. Using mindray ultrasound guidance, the right subclavian vein was identified and local anesthetic was infiltrated at the intended puncture site. The vein was accessed on the first stick and there was return of dark red nonpulsatile blood. However, the wire could not be threaded without resistance and upon examination with ultrasound, the vein appeared to be collapsing and the needle becoming displaced. Two additional attempts were made and the vein continued to collapse and so the wire could not be passed. Therefore, the needle was withdrawn and pressure was held at the site. It was therefore decided to perform an internal jugular access. The right internal jugular vein was identified using mindray ultrasound and collapsed very easily. Local anesthetic was injected into the intended puncture site and vein was accessed with the first stick. The wire was passed. However, there was some resistance and upon examination with ultrasound, the needle had come out of the vein due to the patient's respiratory variation. Therefore, the needle was advanced under ultrasound guidance and repositioned in the vein and the wire was threaded without resistance. The wire position was confirmed using fluoroscopy. The needle was then withdrawn and the wire secured to the drapes using a hemostat. A local anesthetic was infiltrated to the right upper chest at the intended incision site. A 4-cm transverse incision was made in the right upper chest using a 15 blade and dissection carried down through the skin and subcutaneous tissue using electrocautery until the prepectoral fascia was identified. A subcutaneous pocket was then created for the port using combination of blunt dissection and electrocautery. The pocket was checked for hemostasis, which was carefully ensured. The catheter was then tunneled from the pocket to the wire and then a dilator breakaway catheter sheath complex was inserted over the wire under direct fluoroscopic guidance. The dilator was then removed and the catheter placed through the break-away sheath and the break-away sheath removed in the usual fashion. Using continuous fluoroscopy, the catheter tip was pulled back until the tip was visualized in the right atrium. No ectopy was seen on the monitor. The port was then cut and assembled in the usual fashion and tested with heparinized saline. There was return of dark red blood and the port flushed easily. The pocket was irrigated and checked for hemostasis and then once this was ensured, the port was sutured to the prepectoral fascia using 2-0 Vicryl interrupted sutures. The deep dermal layer was then closed with 3-0 Vicryl interrupted sutures and the skin incisions were closed with 4-0 Monocryl subcuticular stitches and skin glue. The port was accessed with a Walton needle. There was return of blood and it flushed easily with heparinized saline. The Biopatch was applied around the entry site at the skin and this was covered with a 4 x 4 gauze and secured with a Tegaderm. Intraoperative chest xray showed good positioning of the port and no PTX. At the end of the case, all sponge, instrument, sharp counts were correct x 2. The patient was awoken from anesthesia, extubated, and taken to PACU in stable condition. JOB# [id number] ANTONINO/JUNIOR CASEY
== END 2018-11-08 10:20 | disposition home or self-care (01) ==
LOC: OR 05:57
PROVIDERS: ATTEND Surgery
DX: C50.912 Malignant neoplasm of unspecified site of left female breast (principal); C78.7 Secondary malignant neoplasm of liver and intrahepatic bile duct; I10 Essential (primary) hypertension; E05.90 Thyrotoxicosis, unspecified without thyrotoxic crisis or storm; Z72.89 Other problems related to lifestyle; Z98.890 Other specified postprocedural states; Z88.0 Allergy status to penicillin; Z79.899 Other long term (current) drug therapy; Z87.891 Personal history of nicotine dependence; Z80.0 Family history of malignant neoplasm of digestive organs
CPT/HCPCS: 36561; 77001; C1788; J1644; J2370; J2405; J2704; J3010; J3370; J7120

== ENCOUNTER 2018-11-11 20:17 | Inpatient (IN) | payer BC, MEDICARE ==
--- NOTE | 2018-11-11 20:30 | Emergency Department Report ---
Blank Doc - Documentation Documentation: +constipation +bright red blood per rectum pt has breast cancer, currently on chemo, first chemo tx on 11/08, just started chemo pt having abd pain +n/v/d no urinary sx PMHx HTN former smoker, quit 30 years ago occ drinker no drug use
[2018-11-11] MEDS ORDERED: ZOFRAN ODT PO ONE (20:31)
[2018-11-11] MEDS ORDERED: ZOFRAN ODT ONE (20:34)
[2018-11-11 21:16] LABS: Hematocrit 44.2 % (30.3-42.9); Hemoglobin 14.8 gm/dl (10.1-14.3); Mean Corpuscular HGB Conc 33 % (30-34); Mean Corpuscular Volume 98 fl (79-97); Platelet Count 115 K/mm3 (140-440); Red Blood Count 4.53 M/mm3 (3.65-5.03); Red Cell Distribution Width 16.5 % (13.2-15.2)
[2018-11-11 21:32] LABS: Albumin 1.9 g/dL (3.9-5); Calcium 8.5 mg/dL (8.4-10.2)
[2018-11-11 21:47] LABS: Basophils % (Manual) 0 % (0.0-1.8); Eosinophils % (Manual) 0 % (0.0-4.3); Total Cells Counted 100
[2018-11-11 21:48] LABS: Anisocytosis Few; Platelet Estimate Consistent w Auto; Poikilocytosis Few
[2018-11-11] MEDS ORDERED: ZOFRAN IV ONE (23:40)
[2018-11-11] MEDS ORDERED: NACL 0.9% 1000 ML 1,000 ML IV ONE (23:40)
[2018-11-11] MEDS ORDERED: MORPHINE IV ONE (23:40)
--- NOTE | 2018-11-11 23:46 | Emergency Department Report ---
<AVA ALLEN - Last Filed: 11/12/18 03:26> ED Abdominal Pain HPI - General Chief Complaint: Weakness Stated Complaint: LOW CALCIUM Time Seen by Provider: 11/11/18 20:27 - Related Data Home Medications Medication Instructions Recorded Confirmed Last Taken Cyanocobalamin (Vitamin B-12) 5,000 mcg PO DAILY 10/25/18 11/08/18 11/07/18 [Vitamin B12] Metoprolol [Lopressor TAB] 25 mg PO BID 10/25/18 11/08/18 11/08/18 03:30 Multivit-Minerals/Folic Acid [One 0.4 mg PO DAILY 11/05/18 11/08/18 11/07/18 Daily Womens 50 Plus Tab] Previous Rx's Medication Instructions Recorded Last Taken Type HYDROcodone/APAP 5-325 [[place] 1 each PO Q6HR PRN #10 tablet 11/08/18 Unknown Rx 5/325] Ibuprofen [Motrin 800 MG tab] 800 mg PO Q8HR PRN #30 tablet 11/08/18 Unknown Rx Allergies Allergy/AdvReac Type Severity Reaction Status Date / Time Penicillins Allergy Unknown Verified 11/11/18 20:23 ED Past Medical Hx - Medications Home Medications: Home Medications Medication Instructions Recorded Confirmed Last Taken Type Cyanocobalamin (Vitamin B-12) 5,000 mcg PO DAILY 10/25/18 11/08/18 11/07/18 History [Vitamin B12] Metoprolol [Lopressor TAB] 25 mg PO BID 10/25/18 11/08/18 11/08/18 03:30 History Multivit-Minerals/Folic Acid [One 0.4 mg PO DAILY 11/05/18 11/08/18 11/07/18 History Daily Womens 50 Plus Tab] HYDROcodone/APAP 5-325 [[place] 1 each PO Q6HR PRN #10 tablet 11/08/18 Unknown Rx 5/325] Ibuprofen [Motrin 800 MG tab] 800 mg PO Q8HR PRN #30 tablet 11/08/18 Unknown Rx ED Medical Decision Making - Lab Data Result diagrams: 11/11/18 20:46 11/11/18 20:46 - Radiology Data Radiology results: report reviewed I reviewed results of CT abdomen and pelvis which revealed diffuse scattered areas of colonic wall thickening. Possible colitis, diffuse hepatic metastases. ED Disposition Clinical Impression: Elevated transaminase level, Hyperbilirubinemia, Liver metastases, Abdominal pain, Dehydration, Breast mass Disposition: DC-09 OP ADMIT IP TO THIS HOSP Is pt being admited?: Yes Does the pt Need Aspirin: No Condition: Stable <LUIS CARRANZA - Last Filed: 11/12/18 16:07> ED Abdominal Pain HPI - General Source: patient Mode of arrival: Wheelchair Limitations: No Limitations - History of Present Illness Initial Comments: Patient is 63 years old female with a recent diagnosis of metastases to have breast cancer. Patient presented to the ER complaining of abdominal pain, nausea and vomiting. Patient recently started on chemotherapy. Patient also stated that she's been having some constipation also and she took Pepto-Bismol and she noticed a blood streak in her stool. Patient denied any fever or chills. No cough or shortness of breath. MD Complaint: abdominal pain -: week(s) Location: diffuse Radiation: none Severity scale (0 -10): 6 Quality: sharp Improves With: vomiting ED Review of Systems ROS: Stated complaint: LOW CALCIUM Other details as noted in HPI Comment: All other systems reviewed and negative Constitutional: denies: chills, fever Respiratory: denies: cough, shortness of breath, SOB with exertion, wheezing Cardiovascular: denies: chest pain, palpitations Gastrointestinal: abdominal pain, nausea, vomiting, constipation, hematochezia. denies: hematemesis, melena Musculoskeletal: denies: back pain Neurological: weakness (generalized). denies: headache ED Past Medical Hx - Past Medical History Previous Medical History?: Yes Hx Hypertension: Yes Hx of Cancer: Yes (breast) Additional medical history: LESIONS ON LIVER/ GALLSTONES - Surgical History Past Surgical History?: Yes Additional Surgical History: left ANKLE - Social History Smoking Status: Former Smoker Substance Use Type: Alcohol ED Physical Exam - General Limitations: No Limitations General appearance: alert, in no apparent distress - Head Head exam: Present: atraumatic, normocephalic, normal inspection - Eye Eye exam: Present: normal appearance - ENT ENT exam: Present: mucous membranes dry - Neck Neck exam: Present: normal inspection - Respiratory Respiratory exam: Present: normal lung sounds bilaterally ED Course Vital Signs 11/11/18 11/11/18 11/12/18 20:22 22:47 00:00 Temperature 97.5 F L 97.3 F L Pulse Rate 101 H 97 H 91 H Respiratory 18 18 24 Rate Blood Pressure 99/65 93/54 Blood Pressure 110/89 [Right] O2 Sat by Pulse 94 96 96 Oximetry 11/12/18 11/12/18 11/12/18 00:08 00:38 03:00 Temperature Pulse Rate 98 H Respiratory 15 16 21 Rate Blood Pressure 105/64 Blood Pressure [Right] O2 Sat by Pulse Oximetry 11/12/18 11/12/18 11/12/18 04:01 05:00 05:48 Temperature Pulse Rate 100 H 94 H Respiratory 21 20 16 Rate Blood Pressure 105/64 110/58 Blood Pressure [Right] O2 Sat by Pulse Oximetry 11/12/18 11/12/18 11/12/18 06:00 07:00 07:11 Temperature Pulse Rate 95 H 92 H 97 H Respiratory 26 H 19 16 Rate Blood Pressure 110/68 104/57 104/57 Blood Pressure [Right] O2 Sat by Pulse Oximetry 11/12/18 11/12/18 11/12/18 07:21 07:31 07:41 Temperature Pulse Rate 93 H 96 H 96 H Respiratory 12 23 21 Rate Blood Pressure 104/57 104/57 104/57 Blood Pressure [Right] O2 Sat by Pulse Oximetry 11/12/18 11/12/18 11/12/18 07:45 07:50 08:01 Temperature Pulse Rate 82 94 H 98 H Respiratory 18 23 24 Rate Blood Pressure 89/47 110/57 Blood Pressure 109/58 [Right] O2 Sat by Pulse 100 Oximetry 11/12/18 11/12/18 11/12/18 08:11 08:21 08:30 Temperature Pulse Rate 99 H 92 H 90 Respiratory 20 21 21 Rate Blood Pressure 110/57 110/57 110/68 Blood Pressure [Right] O2 Sat by Pulse Oximetry 11/12/18 11/12/18 11/12/18 08:41 08:51 09:00 Temperature Pulse Rate 93 H 94 H 92 H Respiratory 20 21 22 Rate Blood Pressure 110/57 110/57 109/58 Blood Pressure [Right] O2 Sat by Pulse Oximetry 11/12/18 11/12/18 11/12/18 09:11 09:21 09:24 Temperature Pulse Rate 92 H 92 H Respiratory 21 21 18 Rate Blood Pressure 110/57 110/57 Blood Pressure [Right] O2 Sat by Pulse Oximetry 11/12/18 11/12/18 11/12/18 09:31 09:36 09:41 Temperature Pulse Rate 92 H 82 93 H Respiratory 23 18 15 Rate Blood Pressure 110/57 110/57 Blood Pressure 118/65 [Right] O2 Sat by Pulse 100 Oximetry 11/12/18 09:46 Temperature Pulse Rate 72 Respiratory 18 Rate Blood Pressure Blood Pressure 110/69 [Right] O2 Sat by Pulse 100 Oximetry ED Medical Decision Making - Lab Data Result diagrams: 11/12/18 04:30 11/12/18 04:30 - Medical Decision Making Patient is 63 years old female with a recent diagnosis of metastases to have breast cancer. Patient presented to the ER complaining of abdominal pain, nausea and vomiting. Patient recently started on chemotherapy. Patient also stated that she's been having some constipation also and she took Pepto-Bismol and she noticed a blood streak in her stool. Patient denied any fever or chills. No cough or shortness of breath. Labs showed a significantly abnormal liver function tests with total bilirubin normal 18. I discussed the patient is Dr. Perez. He advised to admit the patient to the hospital and ordered right upper quadrant ultrasound in the morning and also a GI consult in the morning. I discussed the patient is Dr. Catalina walter, she agreed to admit the patient to medical service pending CT abdomen and pelvis result. Critical care attestation.: If time is entered above; I have spent that time in minutes in the direct care of this critically ill patient, excluding procedure time. ED Disposition Is pt being admited?: Yes
[2018-11-12] MEDS ORDERED: NACL 0.9% 1000 ML 1,000 ML IV ONE (00:12)
--- NOTE | 2018-11-12 03:15 | Cat Scan Report ---
PROCEDURE: CT ABDOMEN PELVIS W CON TECHNIQUE: Computerized axial tomography of the abdomen and pelvis was performed after the IV inject ion of iodinated nonionic contrast. HISTORY: abdominal pain COMPARISONS: 10/25/2018. . FINDINGS: Visualized lower thorax: No significant abnormality. Liver: Stable multiple hypodense lesions seen throughout the liver consistent with diffuse hepatic me tastases. Spleen: Normal size and attenuation. Gallbladder and biliary system: Normal. Pancreas: Normal. Adrenals: Normal. Kidneys: Kidneys enhance symmetrically with contrast. No obstructing stones visualized. No evidence h ydronephrosis. GI tract: No evidence of bowel dilatation or obstruction. No CT evidence for appendicitis or divertic ulitis. New scattered areas of iejv-gu-bhsnpazn colonic wall thickening noted seen throughout the col on may be secondary to underdistention, however correlate for possible colitis. Diverticulosis noted. Lymph nodes and mesentery: Normal. Vasculature: Normal.. Bladder: Normal. Reproductive organs: Normal. Peritoneum: Small amount of abdominal/pelvic ascites. Musculoskeletal structures: No significant abnormality. Other: None . IMPRESSION: New scattered areas of ital-df-lsggibty colonic wall thickening noted seen throughout th e colon may be secondary to underdistention, however correlate for possible colitis. Diffuse hepatic metastases. This document is electronically signed by Linda Breaux MD., Nov 12 2018 03:13:59 AM ET
[2018-11-12] MEDS ORDERED: TYLENOL PO PRN (04:23)
[2018-11-12] MEDS ORDERED: SODIUM CHLORIDE FLUSH SYRINGE 10 ML IV PRN (04:23)
[2018-11-12] MEDS ORDERED: ZOFRAN IV PRN ×2 (04:23→04:28)
[2018-11-12] MEDS: FLAGYL 500 MG/100 ML 500 MG/100 ML BAG IV SCH ×4 (04:44→22:20)
--- NOTE | 2018-11-12 04:51 | History and Physical Report ---
History of Present Illness Date of examination: 11/12/18 History of present illness: 63 -year-old male with a history of metastatic breast cancer, hypertension comes emergency room complaining of abdominal pain in the right upper quadrant that started on Monday. The patient started chemotherapy on , she describes her pain as sharp, constant, intensity 9/10, no radiation, cannot identify exacerbating or relieving factor. + nausea. Also complaining of constipation, small amount of blood with bowel movements Review of systems Constitutional: no weight loss, chills, fever Ears, eyes, nose, mouth and throat: no nasal congestion, no nasal discharge, no sinus pressure, no vision change, no red eye. Neck: No neck pain or rigidity. Cardiovascular: no palpitations, chest pain Respiratory: no cough, shortness of breath Gastrointestinal: + hematochezia Genitourinary : no frequency , no hematuria Musculoskeletal: no joint swelling or muscle ache Integumentary: no rash, no pruritis Neurological: no parathesias, no focal weakness Endocrine: no cold or heat intolerance, no polyuria or polydipsia Hematologic/Lymphatic: no easy bruising, no easy bleeding, no gland swelling Allergic/Immunologic: no urticaria, no angioedema. PAST MEDICAL HISTORY:metastatic breast cancer, hypertension PAST SURGICAL HISTORY: Ankle SOCIAL HISTORY: Denies alcohol, drugs, tobacco FAMILY HISTORY: Hypertension Medications and Allergies Allergies Allergy/AdvReac Type Severity Reaction Status Date / Time Penicillins Allergy Unknown Verified 11/11/18 20:23 Home Medications Medication Instructions Recorded Confirmed Last Taken Type Cyanocobalamin (Vitamin B-12) 5,000 mcg PO DAILY 10/25/18 11/08/18 11/07/18 History [Vitamin B12] Metoprolol [Lopressor TAB] 25 mg PO BID 10/25/18 11/08/18 11/08/18 03:30 History Multivit-Minerals/Folic Acid [One 0.4 mg PO DAILY 11/05/18 11/08/18 11/07/18 History Daily Womens 50 Plus Tab] HYDROcodone/APAP 5-325 [[place] 1 each PO Q6HR PRN #10 tablet 11/08/18 Unknown Rx 5/325] Ibuprofen [Motrin 800 MG tab] 800 mg PO Q8HR PRN #30 tablet 11/08/18 Unknown Rx Active Meds: Active Medications Acetaminophen (Tylenol) 650 mg PO Q4H PRN PRN Reason: Pain MILD(1-3)/Fever >100.5/BARNETT Sodium Chloride (Nacl 0.45% 1000 Ml) 1,000 mls @ 75 mls/hr IV DIRECT HEENA Levofloxacin/Dextrose (Levaquin 750mg/150ml) 750 mg in 150 mls @ 100 mls/hr IV Q24HR HEEAN; Protocol Metronidazole (Flagyl 500 Mg/100 Ml) 500 mg in 100 mls @ 100 mls/hr IV Q8HR HEENA; Protocol Morphine Sulfate (Morphine) 2 mg IV Q4H PRN PRN Reason: Pain, Moderate (4-6) Ondansetron HCl (Zofran) 4 mg IV Q4H PRN PRN Reason: Nausea And Vomiting Sodium Chloride (Sodium Chloride Flush Syringe 10 Ml) 10 ml IV BID HEENA Sodium Chloride (Sodium Chloride Flush Syringe 10 Ml) 10 ml IV PRN PRN PRN Reason: LINE FLUSH Exam - Physical Exam Narrative exam: General Apperance: The patient lying in bed, breathing comfortable HEENT: Normocephalic, atraumatic. Pupils equally round and reactive to light, EOMI, no sclericterus or JVD or thyromegaly or nodule. , no carotid bruit, muco us membranes moist, no exudate or erythema Heart: S1-S2, regular is rhythm Lungs: Clear to auscultation bilaterally, breathing comfortable Abdomen: Positive bowel sounds, soft, tender in the right upper quadrant, nondistended, no organomegaly Extremities: No edema cyanosis clubbing Skin: no rash, nodule, warm and dry Neuro: cranial nerves 2-12 intact, speech is fluent, motor/sensory intact - Constitutional Vitals: Temp Pulse Resp BP Pulse Ox 97.3 F L 98 H 21 105/64 96 11/11/18 22:47 11/12/18 03:00 11/12/18 03:00 11/12/18 03:00 11/12/18 00:00 Results - Labs CBC & Chem 7: 11/12/18 04:30 11/14/18 05:05 Labs: Abnormal lab results 11/11/18 11/11/18 Range/Units 20:46 20:46 Hgb 14.8 H (10.1-14.3) gm/dl Hct 44.2 H (30.3-42.9) % MCV 98 H (79-97) fl MCH 33 H (28-32) pg RDW 16.5 H (13.2-15.2) % Plt Count 115 L (140-440) K/mm3 Sodium 132 L (137-145) mmol/L Carbon Dioxide 13 L (22-30) mmol/L BUN 58 H (7-17) mg/dL Glucose 107 H (65-100) mg/dL Total Bilirubin 18.80 H (0.1-1.2) mg/dL AST 847 H (5-40) units/L ALT 131 H (7-56) units/L Alkaline Phosphatase 1282 H (35-129) units/L Total Protein 5.8 L (6.3-8.2) g/dL Albumin 1.9 L (3.9-5) g/dL - Imaging and Cardiology CT scan - abdomen: report reviewed CT scan - pelvis: report reviewed Assessment and Plan Assessment Colitis Hematochezia secondary to hemorrhoids most likely Jaundice due to metastases to the liver Metastatic breast cancer Hypertension Thrombocytopenia Plan Bowel rest, start IV Levaquin, Flagyl Fluids, IV morphine, antiemetics Consult GI, oncology, DVT prophylaxis
[2018-11-12 04:56] LABS: Hematocrit 42.3 % (30.3-42.9); Hemoglobin 14.1 gm/dl (10.1-14.3); Mean Corpuscular HGB Conc 34 % (30-34); Mean Corpuscular Volume 96 fl (79-97); Platelet Count 103 K/mm3 (140-440); Red Blood Count 4.42 M/mm3 (3.65-5.03); Red Cell Distribution Width 15.9 % (13.2-15.2)
[2018-11-12 05:16] LABS: Calcium 8.4 mg/dL (8.4-10.2)
[2018-11-12] MEDS ORDERED: TYLENOL ONE (05:46)
[2018-11-12 06:29] LABS: Bacteria,Urine 2+ /HPF (Negative); Bilirubin,Urine MOD (Negative); Blood,Urine MOD (Negative); Color,Urine Amber (Yellow); Mucus,Urine FEW /HPF; Protein,Urine <15 mg/dL mg/dL (Negative)
[2018-11-12 06:39] LABS: Basophils % (Manual) 0 % (0.0-1.8); Eosinophils % (Manual) 0 % (0.0-4.3); Monocytes % (Manual) 0 % (0.0-7.3); Total Cells Counted 100
[2018-11-12 06:40] LABS: Anisocytosis 2+; Macrocytosis Few; Platelet Estimate Appears Decreased; Target Cells 1+
[2018-11-12 06:58] LABS: Ictotest,Urine Positive (Negative)
[2018-11-12] MEDS: NACL 0.45% 1000 ML 1,000 ML IV SCH (08:04)
--- NOTE | 2018-11-12 08:09 | Event Note ---
Date: 11/12/18 [id number]
[2018-11-12] MEDS: MORPHINE IV PRN ×3 (08:13→20:11)
[2018-11-12] MEDS ORDERED: MORPHINE ONE (08:14)
[2018-11-12] MEDS ORDERED: ZOFRAN ONE (08:14)
[2018-11-12] MEDS ORDERED: LEVAQUIN 750MG/150ML 750 MG/150 ML BAG IV SCH (10:00)
--- NOTE | 2018-11-12 11:20 | Consultation ---
REFERRED BY: Nurse practitioner, Mary Carmen Kingston. REASON FOR CONSULTATION: Metastatic breast cancer. HISTORY OF PRESENT ILLNESS: I saw the patient, a 63-year-old female in the medical floor. I had seen her in the clinic setting. She had originally been referred to me for high hemoglobin. This was done on 10/11/2018. Ultrasound showed liver lesions. We tried to prepone the appointment. She was next seen on 10/25/2018. She was sent to hospital. There, she underwent biopsy. This showed metastatic breast cancer. I saw her back on 10/31/2018 to discuss over the chemotherapy options. She was HER2 positive, ER was 2%, CA was 0%. At this time, she mentioned about left breast mass. She has been having headaches. There was a plan for Herceptin, Perjeta, and Taxotere to prevent delay. The first chemotherapy was given without immunotherapy on 11/08/2018. At that time, the bilirubin was 5 based on sample from 10/31/2018. Serum calcium was slightly high. There was a plan for Zometa, for which we were trying to reach her. Over the weekend, I spoke to her, she was having constipation and rectal bleed, so I suggested Emergency Room. She came to the hospital for same. She also had abdominal pain. There is a mention of rectal bleed and nausea. She has been having headaches. No chest pain, no shortness of breath at rest. Has no vomiting, no hematuria. No seizure or syncope. No loss of consciousness. PAST MEDICAL HISTORY: Newly diagnosed stage 4 breast cancer and hypertension. PAST SURGICAL HISTORY: Ankle surgery. SOCIAL HISTORY: No history of tobacco or alcohol usage. FAMILY HISTORY: Hypertension. ALLERGIES: PENICILLIN. HOME MEDICATIONS: Included B12, metoprolol, hydrocodone, ibuprofen. PHYSICAL EXAMINATION: VITAL SIGNS: Temperature 97.3, pulse 92, respirations 19, BP 104/57. HEENT: No pallor or icterus present. NECK: No neck lymph nodes. Port present. HEART: S1, S2. LUNGS: Clear to auscultation anteriorly. ABDOMEN: Soft. Liver palpable. EXTREMITIES: No calf tenderness. NEUROLOGIC: Alert, awake, oriented. LABORATORY DATA: White cell 3.6, hemoglobin 14, MCV 96, platelets 103. Potassium 4.9, creatinine 1.4, calcium 8.4, bilirubin 18, AST 847. DIAGNOSTIC DATA: CT scan shows multiple liver lesions, colonic thickening, colitis. ASSESSMENT: Stage 4 breast cancer with left breast mass, multiple liver lesions. The patient is ER 2%, HER2 positive. The patient received monotherapy Taxotere as the cost to the patient for Herceptin, Perjeta was high and the patient could not afford, co-payment assistance was being looked into. Very high bilirubin and AST, ALT secondary to mets. Radiology does not mention any bile duct obstruction. The high bilirubin may be because of liver mets. The patient's prognosis is poor because of advanced stage. Thrombocytopenia, likely chemo related. The patient received monotherapy with Taxotere only on 11/08/2018. History of hypercalcemia, however calcium now is better. History of constipation. Radiology mentions colitis, history of rectal bleed. History of hypertension. I discussed with the patient's family regarding poor prognosis due to advanced stage of the cancer. We will see how she responds. Port can be used for chemotherapy and IV access for now in a sterile aseptic manner. JOB# [id number] NM/NTS
--- NOTE | 2018-11-12 12:00 | Gastroenterology Consultation ---
History of Present Illness - Reason for Consult Consult date: 11/12/18 colitis Requesting physician: GAIL MURILLO - History of Present Illness Patient is a 63 y/o female with PMH of metastatic breast cancer and HTN who presented to ED with c/o abdominal pain, N/V, and constipation with small amount of bright red blood per rectum following BM. Recently started on chemotherapy (first tx 11/08/18). Upon admission, abd CT showed known liver mets and colitis to which GI has been consulted. This morning patient was resting in bed w/o acute distress and family at bedside. Reports generalized abdominal discomfort (pain is nonspecific). N/V now improved (requesting to eat). Admit to constipation but no active signs of bleeding this am. Denies fever, CP, SOB, hematemesis, melena, or diarrhea. No recent abx therapy, travel, or ill contacts. No hx or Fhx of IBD. No previous colonoscopy. Past History Past Medical History: other (as per HPI) Past Surgical History: Other (left ANKLE, port placement) Social history: other (former smoker, occasional alcohol) Family history: hypertension Medications and Allergies Allergies Allergy/AdvReac Type Severity Reaction Status Date / Time Penicillins Allergy Unknown Verified 11/11/18 20:23 Home Medications Medication Instructions Recorded Confirmed Last Taken Type Cyanocobalamin (Vitamin B-12) 5,000 mcg PO DAILY 10/25/18 11/08/18 11/07/18 History [Vitamin B12] Metoprolol [Lopressor TAB] 25 mg PO BID 10/25/18 11/08/18 11/08/18 03:30 History Multivit-Minerals/Folic Acid [One 0.4 mg PO DAILY 11/05/18 11/08/18 11/07/18 History Daily Womens 50 Plus Tab] HYDROcodone/APAP 5-325 [[place] 1 each PO Q6HR PRN #10 tablet 11/08/18 Unknown Rx 5/325] Ibuprofen [Motrin 800 MG tab] 800 mg PO Q8HR PRN #30 tablet 11/08/18 Unknown Rx Active Meds: Active Medications Acetaminophen (Tylenol) 650 mg PO Q4H PRN PRN Reason: Pain MILD(1-3)/Fever >100.5/BARNETT Last Admin: 11/12/18 05:48 Dose: 650 mg Documented by: Sodium Chloride (Nacl 0.45% 1000 Ml) 1,000 mls @ 75 mls/hr IV DIRECT HEENA Last Admin: 11/12/18 08:04 Dose: 75 mls/hr Documented by: Levofloxacin/Dextrose (Levaquin 750mg/150ml) 750 mg in 150 mls @ 100 mls/hr IV Q24HR HEENA; Protocol Metronidazole (Flagyl 500 Mg/100 Ml) 500 mg in 100 mls @ 100 mls/hr IV Q8HR HEENA; Protocol Last Admin: 11/12/18 06:43 Dose: Not Given Documented by: Morphine Sulfate (Morphine) 2 mg IV Q4H PRN PRN Reason: Pain, Moderate (4-6) Last Admin: 11/12/18 08:13 Dose: 2 mg Documented by: Ondansetron HCl (Zofran) 4 mg IV Q4H PRN PRN Reason: Nausea And Vomiting Last Admin: 11/12/18 08:13 Dose: 4 mg Documented by: Sodium Chloride (Sodium Chloride Flush Syringe 10 Ml) 10 ml IV BID HEENA Sodium Chloride (Sodium Chloride Flush Syringe 10 Ml) 10 ml IV PRN PRN PRN Reason: LINE FLUSH medications reviewed/updated as required Review of Systems - Review of Systems All systems: negative Gastrointestinal: abdominal pain, nausea, vomiting, constipation, BRBPR Exam - Constitutional Vital Signs: Temp Pulse Resp BP Pulse Ox 97.3 F L 72 18 110/69 100 11/11/18 22:47 11/12/18 09:46 11/12/18 09:46 11/12/18 09:46 11/12/18 09:46 General appearance: no acute distress - Respiratory Respiratory: bilateral: CTA (anterior) - Cardiovascular Rhythm: regular - Gastrointestinal General gastrointestinal: Present: soft, non-distended, normal bowel sounds - Neurologic Neurological: alert and oriented x3 - Labs CBC & Chem 7: 11/12/18 04:30 11/12/18 04:30 Lab Results: Laboratory Results - last 24 hr 11/11/18 11/11/18 11/11/18 20:46 20:46 20:46 WBC 6.1 RBC 4.53 Hgb 14.8 H Hct 44.2 H MCV 98 H MCH 33 H MCHC 33 RDW 16.5 H Plt Count 115 L Lymph % (Auto) Bit Sharpener Operator Add Manual Diff Complete Total Counted 100 Seg Neutrophils % Bit Sharpener Operator Seg Neuts % (Manual) 67.0 Band Neutrophils % 0 Lymphocytes % (Manual) 31.0 Reactive Lymphs % (Man) 0 Monocytes % (Manual) 2.0 Eosinophils % (Manual) 0 Basophils % (Manual) 0 Metamyelocytes % 0 Myelocytes % 0 Promyelocytes % 0 Blast Cells % 0 Nucleated RBC % Not Reportable Seg Neutrophils # Man 4.1 Band Neutrophils # 0.0 Lymphocytes # (Manual) 1.9 Abs React Lymphs (Man) 0.0 Monocytes # (Manual) 0.1 Eosinophils # (Manual) 0.0 Basophils # (Manual) 0.0 Metamyelocytes # 0.0 Myelocytes # 0.0 Promyelocytes # 0.0 Blast Cells # 0.0 WBC Morphology Not Reportable Hypersegmented Neuts Not Reportable Hyposegmented Neuts Not Reportable Hypogranular Neuts Not Reportable Smudge Cells Not Reportable Toxic Granulation Not Reportable Toxic Vacuolation Not Reportable Dohle Bodies Not Reportable Pelger-Huet Anomaly Not Reportable Nazario Rods Not Reportable Platelet Estimate Consistent w auto Clumped Platelets Not Reportable Plt Clumps, EDTA Not Reportable Large Platelets Not Reportable Giant Platelets Not Reportable Platelet Satelliting Not Reportable Plt Morphology Comment Not Reportable RBC Morphology Not Reportable Dimorphic RBCs Not Reportable Polychromasia Not Reportable Hypochromasia Not Reportable Poikilocytosis Few Anisocytosis Few Microcytosis Not Reportable Macrocytosis Not Reportable Spherocytes Not Reportable Pappenheimer Bodies Not Reportable Sickle Cells Not Reportable Target Cells Not Reportable Tear Drop Cells Not Reportable Ovalocytes Not Reportable Helmet Cells Not Reportable Barrios-Bloxom Bodies Not Reportable [place] Rings Not Reportable [place] Cells Not Reportable Bite Cells Not Reportable Crenated Cell Not Reportable Elliptocytes Not Reportable Acanthocytes (Spur) Not Reportable Rouleaux Not Reportable Hemoglobin C Crystals Not Reportable Schistocytes Not Reportable Malaria parasites Not Reportable Taye Bodies Not Reportable Hem Pathologist Commnt No Sodium 132 L Potassium 4.9 Chloride 98.6 Carbon Dioxide 13 L Anion Gap 25 BUN 58 H Creatinine 1.2 Estimated GFR 55 BUN/Creatinine Ratio 48 Glucose 107 H Calcium 8.5 Phosphorus 3.90 Magnesium 2.20 Total Bilirubin 18.80 H AST 847 H ALT 131 H Alkaline Phosphatase 1282 H Total Protein 5.8 L Albumin 1.9 L Albumin/Globulin Ratio 0.5 Urine Color Urine Turbidity Urine pH Ur Specific [place] Urine Protein Urine Glucose (UA) Urine Ketones Urine Blood Urine Nitrite Urine Bilirubin Urine Ictotest Urine Urobilinogen Ur Leukocyte Esterase Urine WBC (Auto) Urine RBC (Auto) U Epithel Cells (Auto) Urine Bacteria (Auto) Urine Mucus 11/12/18 11/12/18 11/12/18 04:30 04:30 04:30 WBC 3.6 L RBC 4.42 Hgb 14.1 Hct 42.3 MCV 96 MCH 32 MCHC 34 RDW 15.9 H Plt Count 103 L Lymph % (Auto) Bit Sharpener Operator Add Manual Diff Complete Total Counted 100 Seg Neutrophils % Bit Sharpener Operator Seg Neuts % (Manual) 92.0 H Band Neutrophils % 0 Lymphocytes % (Manual) 8.0 L Reactive Lymphs % (Man) 0 Monocytes % (Manual) 0 Eosinophils % (Manual) 0 Basophils % (Manual) 0 Metamyelocytes % 0 Myelocytes % 0 Promyelocytes % 0 Blast Cells % 0 Nucleated RBC % Not Reportable Seg Neutrophils # Man 3.3 Band Neutrophils # 0.0 Lymphocytes # (Manual) 0.3 L Abs React Lymphs (Man) 0.0 Monocytes # (Manual) 0.0 Eosinophils # (Manual) 0.0 Basophils # (Manual) 0.0 Metamyelocytes # 0.0 Myelocytes # 0.0 Promyelocytes # 0.0 Blast Cells # 0.0 WBC Morphology Not Reportable TNR Hypersegmented Neuts Not Reportable Hyposegmented Neuts Not Reportable Hypogranular Neuts Not Reportable Smudge Cells Not Reportable Toxic Granulation Not Reportable Toxic Vacuolation Not Reportable Dohle Bodies Not Reportable Pelger-Huet Anomaly Not Reportable Nazario Rods Not Reportable Platelet Estimate Appears decreased Clumped Platelets Not Reportable Plt Clumps, EDTA Not Reportable Large Platelets Not Reportable Giant Platelets Not Reportable Platelet Satelliting Not Reportable Plt Morphology Comment Not Reportable RBC Morphology Not Reportable Dimorphic RBCs Not Reportable Polychromasia Not Reportable Hypochromasia Not Reportable Poikilocytosis Not Reportable Anisocytosis 2+ Microcytosis Not Reportable Macrocytosis Few Spherocytes Not Reportable Pappenheimer Bodies Not Reportable Sickle Cells Not Reportable Target Cells 1+ Tear Drop Cells Not Reportable Ovalocytes Not Reportable Helmet Cells Not Reportable Barrios-Bloxom Bodies Not Reportable [place] Rings Not Reportable [place] Cells Not Reportable Bite Cells Not Reportable Crenated Cell Not Reportable Elliptocytes Not Reportable Acanthocytes (Spur) Not Reportable Rouleaux Not Reportable Hemoglobin C Crystals Not Reportable Schistocytes Not Reportable Malaria parasites Not Reportable Taye Bodies Not Reportable Hem Pathologist Commnt No Sodium 132 L Potassium 4.9 Chloride 97.9 L Carbon Dioxide 15 L Anion Gap 24 BUN 52 H Creatinine 1.4 H Estimated GFR 46 BUN/Creatinine Ratio 37 Glucose 97 Calcium 8.4 Phosphorus Magnesium Total Bilirubin AST ALT Alkaline Phosphatase Total Protein Albumin Albumin/Globulin Ratio Urine Color Urine Turbidity Urine pH Ur Specific [place] Urine Protein Urine Glucose (UA) Urine Ketones Urine Blood Urine Nitrite Urine Bilirubin Urine Ictotest Urine Urobilinogen Ur Leukocyte Esterase Urine WBC (Auto) Urine RBC (Auto) U Epithel Cells (Auto) Urine Bacteria (Auto) Urine Mucus 11/12/18 05:53 WBC RBC Hgb Hct MCV MCH MCHC RDW Plt Count Lymph % (Auto) Add Manual Diff Total Counted Seg Neutrophils % Seg Neuts % (Manual) Band Neutrophils % Lymphocytes % (Manual) Reactive Lymphs % (Man) Monocytes % (Manual) Eosinophils % (Manual) Basophils % (Manual) Metamyelocytes % Myelocytes % Promyelocytes % Blast Cells % Nucleated RBC % Seg Neutrophils # Man Band Neutrophils # Lymphocytes # (Manual) Abs React Lymphs (Man) Monocytes # (Manual) Eosinophils # (Manual) Basophils # (Manual) Metamyelocytes # Myelocytes # Promyelocytes # Blast Cells # WBC Morphology Hypersegmented Neuts Hyposegmented Neuts Hypogranular Neuts Smudge Cells Toxic Granulation Toxic Vacuolation Dohle Bodies Pelger-Huet Anomaly Nazario Rods Platelet Estimate Clumped Platelets Plt Clumps, EDTA Large Platelets Giant Platelets Platelet Satelliting Plt Morphology Comment RBC Morphology Dimorphic RBCs Polychromasia Hypochromasia Poikilocytosis Anisocytosis Microcytosis Macrocytosis Spherocytes Pappenheimer Bodies Sickle Cells Target Cells Tear Drop Cells Ovalocytes Helmet Cells Barrios-Bloxom Bodies [place] Rings [place] Cells Bite Cells Crenated Cell Elliptocytes Acanthocytes (Spur) Rouleaux Hemoglobin C Crystals Schistocytes Malaria parasites Taye Bodies Hem Pathologist Commnt Sodium Potassium Chloride Carbon Dioxide Anion Gap BUN Creatinine Estimated GFR BUN/Creatinine Ratio Glucose Calcium Phosphorus Magnesium Total Bilirubin AST ALT Alkaline Phosphatase Total Protein Albumin Albumin/Globulin Ratio Urine Color [place] Urine Turbidity Slightly-cloudy Urine pH 5.0 Ur Specific [place] 1.032 H Urine Protein <15 mg/dl Urine Glucose (UA) Neg Urine Ketones Neg Urine Blood Mod Urine Nitrite Neg Urine Bilirubin Mod Urine Ictotest Positive Urine Urobilinogen 4.0 Ur Leukocyte Esterase Sm Urine WBC (Auto) 23.0 H Urine RBC (Auto) 6.0 U Epithel Cells (Auto) 3.0 Urine Bacteria (Auto) 2+ Urine Mucus Few Assessment and Plan 1.colitis 2.constipation 3.BRBPR -afebrile -WBC 3.6 -H/H WNL (14.1/42.3)-no active signs of bleeding (pt reports small amount of BRBPR following BM; 2/2 hemorrhoids vs colitis vs other?; no hematemesis or kalia amber) -continue to monitor H/H and transfuse as needed -abd CT showed diffuse hepatic metastases and new scattered areas of [id number] colonic wall thickening seen throughout colon which may be u nderdistension vs possible colitis -etiology unclear -clinically, patient reports feeling better with mild nonspecific generalized abd pain. N/V improved. Requesting to eat. -okay to start on trial of clear liquids -constipation-start on daily Miralax -agree with empiric antibiotics -stool studies if diarrhea develops -continue supportive care -will likely need a colonoscopy for further evaluation in ~4-6 weeks once colitis resolved -further recommendations to follow 4.metastatic breast cancer -LFTs elevated-likely 2/2 metastases to the liver -currently receiving chemo (first chemo 11/08) -oncology consult pending 5.HTN
[2018-11-12] MEDS: MIRALAX 3350 PO SCH (15:14)
[2018-11-12] MEDS: SODIUM CHLORIDE FLUSH SYRINGE 10 ML IV SCH ×2 (16:23→22:21)
[2018-11-13] MEDS: MORPHINE IV PRN ×4 (00:10→12:31)
[2018-11-13] MEDS: NACL 0.45% 1000 ML 1,000 ML IV SCH (03:50)
[2018-11-13] MEDS: FLAGYL 500 MG/100 ML 500 MG/100 ML BAG IV SCH ×2 (05:32→14:42)
--- NOTE | 2018-11-13 06:50 | Progress Note ---
Assessment and Plan - Patient Problems (1) Breast cancer metastasized to liver Current Visit: Yes Status: Acute Qualifiers: Laterality: unspecified laterality Qualified Code(s): C50.919 - Malignant neoplasm of unspecified site of unspecified female breast; C78.7 - Secondary malignant neoplasm of liver and intrahepatic bile duct Plan to address problem: Hemonc consult (2) Hyperbilirubinemia Current Visit: Yes Status: Acute Plan to address problem: Extensive Liver mets (3) Liver metastases Current Visit: Yes Status: Acute Plan to address problem: Extensive liver mets (4) Colitis Current Visit: Yes Status: Chronic Plan to address problem: More of a radiologic diagnosis GGI consult if necessary (5) HTN (hypertension) Current Visit: Yes Status: Chronic Qualifiers: Hypertension type: essential hypertension Qualified Code(s): I10 - Essential (primary) hypertension Plan to address problem: Cont antihypertensives (6) UTI (urinary tract infection) Current Visit: Yes Status: Acute Qualifiers: Urinary tract infection type: acute cystitis Plan to address problem: On Rocephin (7) DVT prophylaxis Current Visit: Yes Status: Acute Plan to address problem: on lovenox/Heparin Subjective Date of service: 11/12/18 Principal diagnosis: colitis and Hematochezia Interval history: 63 -year-old male with a history of metastatic breast cancer, hypertension comes emergency room complaining of abdominal pain in the right upper quadrant that started on Monday. The patient started chemotherapy on , she describes her pain as sharp, constant, intensity 9/10, no radiation, cannot identify exacerbating or relieving factor. + nausea. Also complaining of constipation, small amount of blood with bowel movements Objective - Constitutional Vitals: Vital Signs - 12hr 11/12/18 11/12/18 11/12/18 19:43 20:11 20:41 Temperature Pulse Rate Respiratory 22 18 Rate Respiratory Rate [Abdomen] Blood Pressure O2 Sat by Pulse 95 Oximetry 11/12/18 11/13/18 11/13/18 22:00 00:06 00:10 Temperature 97.5 F L Pulse Rate 95 H Respiratory 20 18 20 Rate Respiratory 19 Rate [Abdomen] Blood Pressure 131/72 O2 Sat by Pulse 95 Oximetry 11/13/18 11/13/18 11/13/18 00:40 03:51 04:21 Temperature Pulse Rate Respiratory 18 19 18 Rate Respiratory Rate [Abdomen] Blood Pressure O2 Sat by Pulse Oximetry 11/13/18 06:05 Temperature 98.6 F Pulse Rate 112 H Respiratory 20 Rate Respiratory Rate [Abdomen] Blood Pressure 122/68 O2 Sat by Pulse 99 Oximetry General appearance: Present: no acute distress, well-nourished - EENT Eyes: PERRL, EOM intact, scleral icterus ENT: hearing intact, clear oral mucosa Ears: bilateral: normal - Neck Neck: supple, normal ROM - Respiratory Respiratory effort: normal Respiratory: bilateral: CTA - Breasts Breasts: normal - Cardiovascular Heart rate: 78 Rhythm: regular Heart Sounds: Present: S1 & S2. Absent: gallop, rub Extremities: pulses intact, No edema, normal color, Full ROM - Gastrointestinal General gastrointestinal: Present: soft, non-tender, non-distended, normal bowel sounds - Genitourinary Female genitourinary: normal - Integumentary Integumentary: clear, warm, dry - Musculoskeletal Musculoskeletal: 1, strength equal bilaterally - Neurologic Neurologic: moves all extremities - Psychiatric Psychiatric: memory intact, appropriate mood/affect, intact judgment & insight - Allied health notes Allied health notes reviewed: nursing, case management - Labs CBC & Chem 7: 11/12/18 04:30 11/12/18 04:30 Labs: Abnormal lab results 11/12/18 Range/Units 05:53 Ur Specific [place] 1.032 H (1.003-1.030) Urine WBC (Auto) 23.0 H (0.0-6.0) /HPF ABD CT IMPRESSION: New scattered areas of [id number] colonic wall thickening n oted seen throughout the colon may be secondary to underdistention, however correlate for possible colitis. Diffuse hepatic metastases. - Imaging and cardiology CT scan - abdomen: report reviewed
[2018-11-13] MEDS: MIRALAX 3350 PO SCH (09:16)
[2018-11-13] MEDS: SODIUM CHLORIDE FLUSH SYRINGE 10 ML IV SCH (09:16)
--- NOTE | 2018-11-13 11:12 | Gastroenterology Progress Note ---
Assessment and Plan 1.colitis 2.constipation 3.BRBPR -afebrile -WBC 3.6 -H/H WNL- BM x 1 yesterday per family with hard stool and scant amount of BRBPR (etiology unclear- possibly 2/2 hemorrhoids vs colitis vs other?; no hematemesis or melena) -continue to monitor H/H and transfuse as needed -abd CT showed diffuse hepatic metastases and new scattered areas of [id number] colonic wall thickening seen throughout colon which may be underdistension vs possible colitis -etiology unclear -clinically, patient's abd pain is slightly improved. Tolerating small amounts of clears. -advance diet as tolerated -continue Miralax -continue empiric antibiotics -stool studies if diarrhea develops -continue supportive care -recommend colonoscopy as outpatient in ~4-6 weeks for further evaluation once colitis resolved -once patient is tolerating PO, okay to be d/c per GI standpoint on current medications with f/u in clinic to schedule colonoscopy as above 4.metastatic breast cancer -LFTs elevated-likely 2/2 metastases to the liver -currently receiving chemo (first chemo 11/08) -oncology consult pending 5.HTN Subjective Date of service: 11/13/18 Principal diagnosis: colitis and Hematochezia Interval history: No acute distress. Patient noted to be somnolent this am after receiving pain medication. Family at bedside who reports BM x 1 yesterday with hard stool and scant amount of BRBPR. Abd pain improving. Tolerating small amounts of clears. Objective - Constitutional Vitals: Temp Pulse Resp BP Pulse Ox 98.6 F 112 H 20 122/68 99 11/13/18 06:05 11/13/18 06:05 11/13/18 06:05 11/13/18 06:05 11/13/18 06:05 General appearance: no acute distress, other (somnolent) - Respiratory Respiratory: bilateral: CTA (anterior) - Cardiovascular Rhythm: other (tachycardia) - Gastrointestinal General gastrointestinal: Present: soft, tender, non-distended, normal bowel sounds - Labs CBC & Chem 7: 11/12/18 04:30 11/12/18 04:30
--- NOTE | 2018-11-13 11:31 | Hem/Onc Progress Note ---
Assessment and Plan Stage 4 breast cancer with left breast mass, multiple liver lesions. The patient is ER 2%, HER2 positive. The patient received monotherapy Taxotere as the cost to the patient for Herceptin, Perjeta was high and the patient could not afford, co-payment assistance was being looked into. Very high bilirubin and AST, ALT secondary to mets. Radiology does not mention any bile duct obstruction. The high bilirubin may be because of liver mets. The patient's prognosis is poor because of advanced stage. Thrombocytopenia, likely chemo related. The patient received monotherapy with Taxotere only on 11/08/2018. History of hypercalcemia, however calcium now is better. History of constipation. Radiology mentions colitis, history of rectal bleed. History of hypertension. I discussed with the patient's family regarding poor prognosis due to advanced stage of the cancer. We will see how she responds. Port can be used for juan ramon motherapy and IV access for now in a sterile aseptic manner. 11/13 - c/o Dr Seymour and dr horn - XRT oncology ? back ain sec to mets? - Patient Problems (1) Breast cancer metastasized to liver Current Visit: Yes Status: Acute Qualifiers: Laterality: unspecified laterality Qualified Code(s): C50.919 - Malignant neoplasm of unspecified site of unspecified female breast; C78.7 - Secondary malignant neoplasm of liver and intrahepatic bile duct Subjective Date of service: 11/13/18 Principal diagnosis: stage IV breast ca Interval history: stage IV breast ca c/o back pain Objective - Constitutional Vitals: Last Vital Signs Temp 98.6 F 11/13/18 06:05 Pulse 112 H 11/13/18 06:05 Resp 20 11/13/18 06:05 BP 122/68 11/13/18 06:05 Pulse Ox 99 11/13/18 06:05 Pain Intensity (0-10): 6/10 (lower back) General appearance: severe distress Performance status: 4-completely disabled - EENT Eyes: EOM intact ENT: hearing intact Lymph node exam: negative cervical - Neck Neck: normal ROM - Respiratory Respiratory effort: Positive: normal Respiratory: bilateral: diminished (in severe backpain) - Cardiovascular Heart Sounds: Present: S1 & S2 Extremities: No edema - Gastrointestinal General gastrointestinal: Present: non-tender, tender, hepatomegaly Rectal Exam: deferred - Genitourinary Female genitourinary: Present: deferred - Integumentary Integumentary: warm - Musculoskeletal Musculoskeletal: generalized weakness Medications & Allergies - Medications Allergies/Adverse Reactions: Allergies Penicillins Allergy (Verified 11/11/18 20:23) Unknown as a child Home Medications: Home Medications Medication Instructions Recorded Confirmed Last Taken Type RX: Cyanocobalamin (Vitamin B-12) 5,000 mcg PO DAILY 10/25/18 11/08/18 11/07/18 History [Vitamin B12] RX: Metoprolol [Lopressor TAB] 25 mg PO BID 10/25/18 11/08/18 11/08/18 03:30 History RX: Multivit-Minerals/Folic Acid 0.4 mg PO DAILY 11/05/18 11/08/18 11/07/18 History [One Daily Womens 50 Plus Tab] HYDROcodone/APAP 5-325 [[place] 1 each PO Q6HR PRN #10 tablet 11/08/18 Unknown Rx 5/325] RX: Ibuprofen [Motrin 800 MG tab] 800 mg PO Q8HR PRN #30 tablet 11/08/18 Unknown Rx Active Medications: Generic Name Dose Route Start Last Admin Trade Name Freq PRN Reason Stop Dose Admin Acetaminophen 650 mg 11/12/18 04:23 11/12/18 05:48 Tylenol PO 650 mg Q4H PRN Administration Pain MILD(1-3)/Fever >100.5/BARNETT Sodium Chloride 1,000 mls @ 75 mls/hr 11/12/18 05:00 11/13/18 03:50 Nacl 0.45% 1000 Ml IV 75 mls/hr DIRECT HEENA Administration Metronidazole 500 mg in 100 mls @ 100 mls/hr 11/12/18 06:00 11/13/18 05:32 Flagyl 500 Mg/100 Ml IV 100 mls/hr Q8HR HEENA Administration Protocol Levofloxacin/Dextrose 750 mg in 150 mls @ 100 mls/hr 11/14/18 10:00 Levaquin 750mg/150ml IV Q48HR HEENA Protocol Morphine Sulfate 2 mg 11/12/18 04:23 11/13/18 08:09 Morphine IV 2 mg Q4H PRN Administration Pain, Moderate (4-6) Ondansetron HCl 4 mg 11/12/18 04:28 11/12/18 08:13 Zofran IV 4 mg Q4H PRN Administration Nausea And Vomiting Polyethylene Glycol 17 gm 11/12/18 13:00 11/13/18 09:16 Miralax 3350 PO 17 gm QDAY HEENA Administration Sodium Chloride 10 ml 11/12/18 10:00 11/13/18 09:16 Sodium Chloride Flush Syringe 10 Ml IV 10 ml BID HEENA Administration Sodium Chloride 10 ml 11/12/18 04:23 Sodium Chloride Flush Syringe 10 Ml IV PRN PRN LINE FLUSH
[2018-11-13] MEDS ORDERED: DILAUDID IV PRN (13:25)
--- NOTE | 2018-11-13 13:52 | Progress Note ---
Assessment and Plan Assessment and plan: 63 -year-old male with a history of metastatic breast cancer, hypertension comes emergency room complaining of abdominal pain in the right upper quadrant that started on Monday. The patient started chemotherapy on , she describes her pain as sharp, constant, intensity 9/10, no radiation, cannot identify exacerbating or relieving factor. + nausea. Also complaining of constipation, small amount of blood with bowel movements (1) Breast cancer metastasized to liver - Hematology oncology consult appreciated - Pain control (2) Hyperbilirubinemia CT didn't show any obstruction Extensive Liver mets (3) Liver metastases Extensive liver mets (4) Colitis -GI Consult appreciated (5) HTN (hypertension) Cont antihypertensives (6) UTI (urinary tract infection) - Continue Rocephin (7) DVT prophylaxis on lovenox Prognosis is poor. Disposition; per hem/onc recommendations. History Interval history: Patient was seen and this morning, patient was complaining pain. Hospitalist Physical - Physical exam Narrative exam: Not in cardiopulmonary distress. The patient appeared well nourished and normally developed. Vital signs as documented. Head exam is unremarkable. No scleral icterus . Neck is without jugular venous distension, thyromegaly, or carotid bruits. Lungs are clear to auscultation. Cardiac exam reveals regular rate and Rhythm. Abdominal exam reveals normal bowel sounds. Extremities are nonedematous and both femoral and pedal pulses are normal. ANALYTICAL RESEARCH CHEMIST: Alert and oriented 3. No focal weakness. - Constitutional Vitals: Temp Pulse Resp BP Pulse Ox 97.6 F 105 H 24 124/78 99 11/13/18 12:49 11/13/18 12:49 11/13/18 12:49 11/13/18 12:49 11/13/18 12:49 General appearance: Present: no acute distress, well-nourished Results - Labs CBC & Chem 7: 11/12/18 04:30 11/12/18 04:30 Labs: Laboratory Last Values WBC 3.6 K/mm3 (4.5-11.0) L 11/12/18 04:30 RBC 4.42 M/mm3 (3.65-5.03) 11/12/18 04:30 Hgb 14.1 gm/dl (10.1-14.3) 11/12/18 04:30 Hct 42.3 % (30.3-42.9) 11/12/18 04:30 MCV 96 fl (79-97) 11/12/18 04:30 MCH 32 pg (28-32) 11/12/18 04:30 MCHC 34 % (30-34) 11/12/18 04:30 RDW 15.9 % (13.2-15.2) H 11/12/18 04:30 Plt Count 103 K/mm3 (140-440) L 11/12/18 04:30 Lymph % (Auto) Software Configuration Engineer 11/12/18 04:30 Add Manual Diff Complete 11/12/18 04:30 Total Counted 100 11/12/18 04:30 Seg Neutrophils % Software Configuration Engineer 11/12/18 04:30 Seg Neuts % (Manual) 92.0 % (40.0-70.0) H 11/12/18 04:30 0 % 11/12/18 04:30 8.0 % (13.4-35.0) L 11/12/18 04:30 Reactive Lymphs % (Man) 0 % 11/12/18 04:30 0 % (0.0-7.3) 11/12/18 04:30 0 % (0.0-4.3) 11/12/18 04:30 0 % (0.0-1.8) 11/12/18 04:30 0 % 11/12/18 04:30 0 % 11/12/18 04:30 0 % 11/12/18 04:30 0 % 11/12/18 04:30 Nucleated RBC % Not Reportable 11/12/18 04:30 Seg Neutrophils # Man 3.3 K/mm3 (1.8-7.7) 11/12/18 04:30 Band Neutrophils # 0.0 K/mm3 11/12/18 04:30 0.3 K/mm3 (1.2-5.4) L 11/12/18 04:30 Abs React Lymphs (Man) 0.0 K/mm3 11/12/18 04:30 0.0 K/mm3 (0.0-0.8) 11/12/18 04:30 0.0 K/mm3 (0.0-0.4) 11/12/18 04:30 0.0 K/mm3 (0.0-0.1) 11/12/18 04:30 0.0 K/mm3 11/12/18 04:30 0.0 K/mm3 11/12/18 04:30 0.0 K/mm3 11/12/18 04:30 Blast Cells # 0.0 K/mm3 11/12/18 04:30 WBC Morphology Not Reportable 11/12/18 04:30 WBC Morphology TNR 11/12/18 04:30 Hypersegmented Neuts Not Reportable 11/12/18 04:30 Hyposegmented Neuts Not Reportable 11/12/18 04:30 Hypogranular Neuts Not Reportable 11/12/18 04:30 Not Reportable 11/12/18 04:30 Not Reportable 11/12/18 04:30 Not Reportable 11/12/18 04:30 Not Reportable 11/12/18 04:30 Not Reportable 11/12/18 04:30 Not Reportable 11/12/18 04:30 Appears decreased 11/12/18 04:30 Not Reportable 11/12/18 04:30 Plt Clumps, EDTA Not Reportable 11/12/18 04:30 Not Reportable 11/12/18 04:30 Not Reportable 11/12/18 04:30 Not Reportable 11/12/18 04:30 Plt Morphology Comment Not Reportable 11/12/18 04:30 RBC Morphology Not Reportable 11/12/18 04:30 Dimorphic RBCs Not Reportable 11/12/18 04:30 Not Reportable 11/12/18 04:30 Not Reportable 11/12/18 04:30 Not Reportable 11/12/18 04:30 2+ 11/12/18 04:30 Not Reportable 11/12/18 04:30 Few 11/12/18 04:30 Not Reportable 11/12/18 04:30 Not Reportable 11/12/18 04:30 Not Reportable 11/12/18 04:30 1+ 11/12/18 04:30 Not Reportable 11/12/18 04:30 Not Reportable 11/12/18 04:30 Not Reportable 11/12/18 04:30 Not Reportable 11/12/18 04:30 Not Reportable 11/12/18 04:30 Not Reportable 11/12/18 04:30 Not Reportable 11/12/18 04:30 Not Reportable 11/12/18 04:30 Not Reportable 11/12/18 04:30 Acanthocytes (Spur) Not Reportable 11/12/18 04:30 Rouleaux Not Reportable 11/12/18 04:30 Not Reportable 11/12/18 04:30 Not Reportable 11/12/18 04:30 Not Reportable 11/12/18 04:30 Not Reportable 11/12/18 04:30 Hem Pathologist Commnt No 11/12/18 04:30 Sodium 132 mmol/L (137-145) L 11/12/18 04:30 Potassium 4.9 mmol/L (3.6-5.0) 11/12/18 04:30 Chloride 97.9 mmol/L (98-107) L 11/12/18 04:30 Carbon Dioxide 15 mmol/L (22-30) L 11/12/18 04:30 24 mmol/L 11/12/18 04:30 BUN 52 mg/dL (7-17) H 11/12/18 04:30 1.4 mg/dL (0.7-1.2) H 11/12/18 04:30 Estimated GFR 46 ml/min 11/12/18 04:30 37 % 11/12/18 04:30 Glucose 97 mg/dL (65-100) 11/12/18 04:30 Calcium 8.4 mg/dL (8.4-10.2) 11/12/18 04:30 Phosphorus 3.90 mg/dL (2.5-4.5) 11/11/18 20:46 Magnesium 2.20 mg/dL (1.7-2.3) 11/11/18 20:46 18.80 mg/dL (0.1-1.2) H 11/11/18 20:46 AST 847 units/L (5-40) H 11/11/18 20:46 ALT 131 units/L (7-56) H 11/11/18 20:46 1282 units/L (35-129) H 11/11/18 20:46 5.8 g/dL (6.3-8.2) L 11/11/18 20:46 1.9 g/dL (3.9-5) L 11/11/18 20:46 0.5 % 11/11/18 20:46 [place] (Yellow) 11/12/18 05:53 Slightly-cloudy (Clear) 11/12/18 05:53 5.0 (5.0-7.0) 11/12/18 05:53 Ur Specific [place] 1.032 (1.003-1.030) H 11/12/18 05:53 <15 mg/dl mg/dL (Negative) 11/12/18 05:53 Neg mg/dL (Negative) 11/12/18 05:53 Neg mg/dL (Negative) 11/12/18 05:53 Mod (Negative) 11/12/18 05:53 Neg (Negative) 11/12/18 05:53 Mod (Negative) 11/12/18 05:53 Positive (Negative) 11/12/18 05:53 4.0 mg/dL (<2.0) 11/12/18 05:53 Ur Leukocyte Esterase Sm (Negative) 11/12/18 05:53 23.0 /HPF (0.0-6.0) H 11/12/18 05:53 6.0 /HPF (0.0-6.0) 11/12/18 05:53 U Epithel Cells (Auto) 3.0 /HPF (0-13.0) 11/12/18 05:53 2+ /HPF (Negative) 11/12/18 05:53 Few /HPF 11/12/18 05:53 Active Medications - Current Medications Current Medications: Generic Name Dose Route Start Last Admin Trade Name Freq PRN Reason Stop Dose Admin Acetaminophen 650 mg 11/12/18 04:23 11/12/18 05:48 Tylenol PO 650 mg Q4H PRN Administration Pain MILD(1-3)/Fever >100.5/BARNETT Hydromorphone HCl 0.5 mg 11/13/18 13:25 Dilaudid IV Q3H PRN Pain , Severe (7-10) Sodium Chloride 1,000 mls @ 75 mls/hr 11/12/18 05:00 11/13/18 03:50 Nacl 0.45% 1000 Ml IV 75 mls/hr DIRECT HEENA Administration Metronidazole 500 mg in 100 mls @ 100 mls/hr 11/12/18 06:00 11/13/18 05:32 Flagyl 500 Mg/100 Ml IV 100 mls/hr Q8HR HEENA Administration Protocol Levofloxacin/Dextrose 750 mg in 150 mls @ 100 mls/hr 11/14/18 10:00 Levaquin 750mg/150ml IV Q48HR HEENA Protocol Morphine Sulfate 2 mg 11/12/18 04:23 11/13/18 12:31 Morphine IV 2 mg Q4H PRN Administration Pain, Moderate (4-6) Ondansetron HCl 4 mg 11/12/18 04:28 11/12/18 08:13 Zofran IV 4 mg Q4H PRN Administration Nausea And Vomiting Polyethylene Glycol 17 gm 11/12/18 13:00 11/13/18 09:16 Miralax 3350 PO 17 gm QDAY HEENA Administration Sodium Chloride 10 ml 11/12/18 10:00 11/13/18 09:16 Sodium Chloride Flush Syringe 10 Ml IV 10 ml BID HEENA Administration Sodium Chloride 10 ml 11/12/18 04:23 Sodium Chloride Flush Syringe 10 Ml IV PRN PRN LINE FLUSH
[2018-11-13] MEDS ORDERED: D50W (25GM) Syringe IV ONE ×3 (17:13→22:38)
[2018-11-13] MEDS ORDERED: ADRENALIN ONE (17:13)
--- NOTE | 2018-11-13 17:43 | Event Note ---
Date: 11/13/18 Called to bedside for intubation during code blue. Pt initially apneic and pulseless, in cardiac arrest. Aspiration noted. I intubated patient with 7.5 ET tube. Positive color change on CO2 detector, bilateral breath sounds present, condensation in the tube following intubation. Dr Haynes at bedside to run the code and speak with family. CXR reviewed, shows right mainstem intubation. Instructed resp therapist to pull back ET tube 2 cm. Repeat CXR improved with adequate tube placement.
--- NOTE | 2018-11-13 17:45 | Event Note ---
Date: 11/13/18 Valdemar lira was called at 5:13 for PEA and patient was successfully resucitated, intubated and transferred to ICU. Patient has poor prognosis and I have extensive discussion with the family and they want to continue to be full code. Critical care time; 25 minutes
--- NOTE | 2018-11-13 18:04 | XRay Report ---
PROCEDURE: XR CHEST 1V AP TECHNIQUE: Chest radiograph single view. HISTORY: Tube localization. PEA COMPARISONS: None . FINDINGS: Endotracheal tube tip right main stem bronchus. Withdrawal 3 cm recommended Right port with tip in right atrium No pneumothorax. No sizable effusion Perihilar airspace disease IMPRESSION: Endotracheal tube tip in right mainstem bronchus. Repositioning recommended. CRITICAL VALUE: Endotracheal tube tip in right mainstem bronchus VÍCTOR critical value reporting initiated at 6:01 PM ET November 13, 2018 This document is electronically signed by Charanjit Yates MD., Nov 13 2018 06:02:34 PM ET
[2018-11-13] MEDS ORDERED: NACL 0.9% 1000 ML 1,000 ML ONE (18:23)
[2018-11-13] MEDS ORDERED: NACL 0.9% 1000 ML 3,000 ML IV ONE (18:32)
[2018-11-13] MEDS: LEVOPHED DRIP 4 MG/NS 250 ML 4 MG/250 ML BAG IV SCH (19:15)
--- NOTE | 2018-11-13 19:30 | XRay Report ---
PROCEDURE: XR CHEST 1V AP TECHNIQUE: Chest radiograph single view. HISTORY: post- intubation and tube adjustment COMPARISONS: None . FINDINGS: Single frontal view of the chest was acquired and compared to the prior examination of November 13. The heart is mildly large although unchanged from the prior exam. There is a right-sided port with it s tip in the right atrium. There is no pneumothorax. There is an endotracheal tube with its tip in appropriate position. IMPRESSION: The endotracheal tube lies in appropriate position This document is electronically signed by Natanael Spaulding MD., Nov 13 2018 07:28:18 PM ET
[2018-11-13 21:08] LABS: BUN/Creatinine Ratio 27; Blood Urea Nitrogen 72 mg/dL (7-17); Calcium 6.6 mg/dL (8.4-10.2); Hemolysis Index 6
[2018-11-13] MEDS ORDERED: NEO-SYNEPHRINE 100 MG in NACL 0.9% 90 ML IV SCH (22:15)
[2018-11-13] MEDS ORDERED: D50W (25GM) Syringe IV PRN (22:17)
[2018-11-13] MEDS ORDERED: CALCIUM GLUCONATE IV ONE (22:23)
[2018-11-13] MEDS ORDERED: D5NS 1,000 ML IV SCH (23:00)
[2018-11-13] MEDS ORDERED: SODIUM BICARBONATE 150 MEQ in D5W 1,000 ML IV SCH (23:00)
[2018-11-13] MEDS ORDERED: CALCIUM GLUCONATE 1,000 MG in NACL 0.9% 100 ML IV ONE (23:00)
[2018-11-13 23:25] LABS: Calcium 6.9 mg/dL (8.4-10.2)
[2018-11-14] MEDS: LEVOPHED DRIP 4 MG/NS 250 ML 4 MG/250 ML BAG IV SCH ×2 (01:25→06:01)
[2018-11-14] MEDS: FLAGYL 500 MG/100 ML 500 MG/100 ML BAG IV SCH (01:50)
[2018-11-14] MEDS ORDERED: D50W (25GM) Syringe IV ONE ×3 (02:00→07:46)
[2018-11-14] MEDS: SODIUM CHLORIDE FLUSH SYRINGE 10 ML IV SCH (02:02)
[2018-11-14] MEDS: SODIUM BICARBONATE IV ONE ×2 (03:47→03:48)
[2018-11-14 06:53] LABS: Blood Urea Nitrogen TNR mg/dL (7-17)
[2018-11-14 06:54] LABS: Alanine Aminotransferase TNR units/L (7-56); Albumin TNR g/dL (3.9-5); BUN/Creatinine Ratio TNR; Calcium TNR mg/dL (8.4-10.2); Hemolysis Index TNR
--- NOTE | 2018-11-14 07:22 | XRay Report ---
PROCEDURE: XR ABDOMEN 1V AP TECHNIQUE: Abdominal radiograph, single view. HISTORY: Tube placement COMPARISONS: None . FINDINGS: Bowel gas pattern: Nondiagnostic. . The tip of the NG tube is in the distal esophagus. It needs to b e advanced at least 15 cm. Masses or calcifications: None . Bony structures: No significant abnormality . Other: None . IMPRESSION: Tip of the NG tube is in the distal esophagus. Needs be advanced least 15 cm.. This document is electronically signed by Mp Wynn MD., Nov 14 2018 07:20:48 AM ET
[2018-11-14] MEDS ORDERED: D50W (25GM) Syringe IV PRN (07:41)
--- NOTE | 2018-11-14 07:41 | Hem/Onc Progress Note ---
Assessment and Plan h/o Stage 4 breast cancer with left breast mass, multiple liver lesions. The patient is ER 2%, HER2 positive. The patient received monotherapy Taxotere as the cost to the patient for Herceptin, Perjeta was high and the patient could not afford, co-payment assistance was being looked into. Very high bilirubin and AST, ALT secondary to mets. Radiology does not mention any bile duct obstruction. The high bilirubin may be because of liver mets. The patient's prognosis is poor because of advanced stage. Thrombocytopenia, likely chemo related. The patient received monotherapy with Taxotere only on 11/08/2018. History of hypercalcemia, however calcium now is better. History of constipation. Radiology mentions colitis, history of rectal bleed. History of hypertension. I had discussed with the patient's family regarding poor prognosis due to advanced stage of the cancer. 11/14 - pt had a code - transferred to ICU on vent not on pressors - not responding to pain poor prognosis - Patient Problems (1) Breast cancer metastasized to liver Status: Acute Qualifiers: Laterality: unspecified laterality Qualified Code(s): C50.919 - Malignant neoplasm of unspecified site of unspecified female breast; C78.7 - Secondary malignant neoplasm of liver and intrahepatic bile duct Subjective Date of service: 11/14/18 Principal diagnosis: stage IV breast ca Interval history: had a code - transferred to ICU Objective - Constitutional Vitals: Last Vital Signs Temp 97.7 F 11/14/18 04:00 Pulse 69 11/14/18 07:00 Resp 16 11/14/18 07:00 BP 98/51 11/14/18 07:00 Pulse Ox 87 11/14/18 07:00 General appearance: other (on vent) Performance status: 4-completely disabled - EENT ENT: other (intubated) Lymph node exam: negative cervical - Respiratory Respiratory effort: Positive: other (on vent) Respiratory: bilateral: diminished - Cardiovascular Heart Sounds: Present: S1 & S2 Extremities: normal temperature - Gastrointestinal General gastrointestinal: Present: soft, distended Rectal Exam: deferred - Genitourinary Female genitourinary: Present: deferred - Integumentary Integumentary: warm - Musculoskeletal Musculoskeletal: other (on vent - unresponsive) - Labs Lab Results: Laboratory Results - last 24 hr 11/13/18 11/13/18 11/13/18 17:28 17:38 20:45 POC ABG pH POC ABG pO2 POC ABG HCO3 POC ABG Total CO2 POC ABG O2 Sat POC ABG Base Excess FiO2 Sodium 139 D Potassium 4.9 Chloride 107.8 H Carbon Dioxide 6 L* D Anion Gap 30 BUN 72 H Creatinine 2.7 H D Estimated GFR 21 BUN/Creatinine Ratio 27 Glucose 36 L* POC Glucose < 40 L 204 H Calcium 6.6 L D Total Bilirubin AST ALT Alkaline Phosphatase Troponin T < 0.010 Total Protein Albumin Albumin/Globulin Ratio 11/13/18 11/13/18 11/13/18 20:51 21:53 22:41 POC ABG pH POC ABG pO2 POC ABG HCO3 POC ABG Total CO2 POC ABG O2 Sat POC ABG Base Excess FiO2 Sodium Potassium Chloride Carbon Dioxide Anion Gap BUN Creatinine Estimated GFR BUN/Creatinine Ratio Glucose POC Glucose < 40 L 83 44 L Calcium Total Bilirubin AST ALT Alkaline Phosphatase Troponin T Total Protein Albumin Albumin/Globulin Ratio 11/13/18 11/14/18 11/14/18 22:55 01:40 03:20 POC ABG pH 6.807 L POC ABG pO2 149 H POC ABG HCO3 3.9 POC ABG Total CO2 < 5 POC ABG O2 Sat 96 POC ABG Base Excess < -30 FiO2 100 Sodium 143 Potassium 5.5 H Chloride 108.7 H Carbon Dioxide 7 L* Anion Gap 33 BUN 72 H Creatinine 2.8 H Estimated GFR 21 BUN/Creatinine Ratio 26 Glucose 48 L POC Glucose 42 L Calcium 6.9 L Total Bilirubin AST ALT Alkaline Phosphatase Troponin T Total Protein Albumin Albumin/Globulin Ratio 11/14/18 11/14/18 11/14/18 04:53 05:05 07:14 POC ABG pH POC ABG pO2 POC ABG HCO3 POC ABG Total CO2 POC ABG O2 Sat POC ABG Base Excess FiO2 Sodium TNR Potassium TNR Chloride TNR Carbon Dioxide TNR Anion Gap TNR BUN TNR Creatinine TNR Estimated GFR TNR BUN/Creatinine Ratio TNR Glucose TNR POC Glucose < 40 L < 40 L Calcium TNR Total Bilirubin TNR AST TNR ALT TNR Alkaline Phosphatase TNR Troponin T Total Protein TNR Albumin TNR Albumin/Globulin Ratio TNR Medications & Allergies - Medications Allergies/Adverse Reactions: Allergies Penicillins Allergy (Verified 11/11/18 20:23) Unknown as a child Home Medications: Home Medications Medication Instructions Recorded Confirmed Last Taken Type Cyanocobalamin (Vitamin B-12) 5,000 mcg PO DAILY 10/25/18 11/08/18 11/07/18 History [Vitamin B12] Metoprolol [Lopressor TAB] 25 mg PO BID 10/25/18 11/08/18 11/08/18 03:30 History Multivit-Minerals/Folic Acid [One 0.4 mg PO DAILY 11/05/18 11/08/18 11/07/18 History Daily Womens 50 Plus Tab] HYDROcodone/APAP 5-325 [[place] 1 each PO Q6HR PRN #10 tablet 11/08/18 Unknown Rx 5/325] Ibuprofen [Motrin 800 MG tab] 800 mg PO Q8HR PRN #30 tablet 11/08/18 Unknown Rx Active Medications: Generic Name Dose Route Start Last Admin Trade Name Freq PRN Reason Stop Dose Admin Acetaminophen 650 mg 11/12/18 04:23 11/12/18 05:48 Tylenol PO 650 mg Q4H PRN Administration Pain MILD(1-3)/Fever >100.5/BARNETT Hydromorphone HCl 0.5 mg 11/13/18 13:25 11/13/18 14:46 Dilaudid IV 0.5 mg Q3H PRN Administration Pain , Severe (7-10) Metronidazole 500 mg in 100 mls @ 100 mls/hr 11/12/18 06:00 11/14/18 01:50 Flagyl 500 Mg/100 Ml IV 100 mls/hr Q8HR HEENA Administration Protocol Levofloxacin/Dextrose 750 mg in 150 mls @ 100 mls/hr 11/14/18 10:00 Levaquin 750mg/150ml IV Q48HR HEENA Protocol Norepinephrine 4 mg in 250 mls @ 7.5 mls/hr 11/13/18 19:00 11/14/18 06:02 Levophed Drip 4 Mg/Ns 250 Ml IV 22 mcg/min TITR HEENA 82.5 mls/hr Titration Protocol 2 MCG/MIN Phenylephrine HCl 100 mg/ 100 mls @ 3 mls/hr 11/13/18 22:15 11/14/18 05:18 Sodium Chloride IV 160 mcg/min TITR HEENA 9.6 mls/hr Titration Protocol 50 MCG/MIN Dextrose/Sodium Chloride 1,000 mls @ 75 mls/hr 11/13/18 23:00 D5ns IV DIRECT HEENA Sodium Bicarbonate 150 meq/ 1,150 mls @ 75 mls/hr 11/13/18 23:00 11/13/18 23:35 Dextrose IV 75 mls/hr DIRECT HEENA Administration Morphine Sulfate 2 mg 11/12/18 04:23 11/13/18 12:31 Morphine IV 2 mg Q4H PRN Administration Pain, Moderate (4-6) Ondansetron HCl 4 mg 11/12/18 04:28 11/12/18 08:13 Zofran IV 4 mg Q4H PRN Administration Nausea And Vomiting Polyethylene Glycol 17 gm 11/12/18 13:00 11/13/18 09:16 Miralax 3350 PO 17 gm QDAY HEENA Administration Sodium Chloride 10 ml 11/12/18 10:00 11/14/18 02:02 Sodium Chloride Flush Syringe 10 Ml IV 10 ml BID HEENA Administration Sodium Chloride 10 ml 11/12/18 04:23 Sodium Chloride Flush Syringe 10 Ml IV PRN PRN LINE FLUSH
--- NOTE | 2018-11-14 07:41 | Event Note ---
ED Tai. CODE BLUE note Called to the ICU for CODE BLUE. Upon my arrival was informed by nursing that the patient never became pulseless just bradycardic in the 20s but a CODE BLUE was called. Patient had already been intubated previously in the admission. Case discussed with Dr. Dorman in room Pulmonary: Breath sounds equal bilaterally Cardiovascular: Regular rate and rhythm Abdomen: No breath sounds auscultated. No distention
[2018-11-14] MEDS ORDERED: D10W 1,000 ML IV SCH (08:00)
[2018-11-14] MEDS ORDERED: SODIUM BICARBONATE 150 MEQ in STERILE WATER 1,000 ML IV SCH (08:00)
[2018-11-14] MEDS ORDERED: ADRENALIN ONE (08:30)
--- NOTE | 2018-11-14 08:35 | Event Note ---
ED Tai. CODE BLUE note Called to the ICU for a CODE BLUE in progress. Upon my arrival the patient was receiving chest compressions from staff and being bagged via ET tube by respiratory therapy. Per nursing the patient entered into asystole Pulmonary: No spontaneous respirations. Breath sounds equal bilaterally with bagging Cardiovascular: No heart sounds auscultated. Asystole on monitor Neuro: GCS 3T Patient discussed with and left in the care of Dr. Haynes at bedside to resume ACLS protocol
--- NOTE | 2018-11-14 08:50 | Death Note ---
Note Date of : 11/14/18 Time of : 08:41 Time Pronounced: 08:41 - Preliminary Cause of (problem) (1) Asystole Preliminary cause of (2) Respiratory failure Preliminary cause of
--- NOTE | 2018-11-14 08:53 | Event Note ---
Date: 11/14/18 Patient was coded around 8:20 AM and was resuscitated according to ACLS protocol. Despite that the patient expires at 08:41
[2018-11-14 09:14] VITALS: BP 121/59
[2018-11-14] MEDS ORDERED: LEVAQUIN 750MG/150ML 750 MG/150 ML BAG IV SCH (10:00)
--- NOTE | 2018-11-14 17:00 | Discharge Summary ---
Providers - Providers Date of Admission: 11/12/18 04:23 Date of discharge: 11/14/18 Attending physician: YAMILETH ANDERSON MD 11/11/18 23:50 Consult to Physician [CONS] Stat Comment: Consulting Provider: SPENCER TURNER Physician Instructions: Reason For Exam: metastatic breast cancer. 11/12/18 04:23 Consult to Physician [CONS] Routine Comment: Consulting Provider: DEVON VENTURA Physician Instructions: Reason For Exam: colitis 11/13/18 17:40 Consult to Physician [CONS] Routine Comment: Consulting Provider: PRERNA SMALL Physician Instructions: Reason For Exam: s/P PEA Primary care physician: PAGE SHAW Hospitalization Reason for admission: metastatic breast cancer, liver failure, altered mental status, colitis, GI Pertinent studies: CT abdomen and pelvis New scattered areas of [id number] colonic wall thickening noted seen throughout the colon may be secondary to underdistention, however correlate for possible colitis. Hospital course: 63 -year-old male with a history of metastatic breast cancer, hypertension comes emergency room complaining of abdominal pain in the right upper quadrant that started on Monday. The patient started chemotherapy on , she describes her pain as sharp, constant, intensity 9/10, no radiation, cannot identify exacerbating or relieving factor. + nausea. Also complaining of constipation, small amount of blood with bowel movements. Patient was admitted to the floor and CT abdomen and pelvis was done today show any obstruction of bile duct, jaundice could be due to metastatic liver cancer. GI and hematology oncology consult appreciated. patient was complaining severe back pain and headache. with the suspicion of metastatic to the back and brain we planned to do MRI of the back and considering palliative radiation therapy. Before the test was done patient went into PEA, coded according to ACLS protocol, intubated and transferred to ICU. In the ICU patient was acidotic and was given IV fluids and bicarbs with no improvement. Patient was hypoglycemic despite multiple rounds of D50 and continuos D10. I have discussed with her and her mother about the poor prognosis of the patient. Despite that they want her to be full code.. This morning around 8:20 the patient went into asystole and resuscitated according to ACLS protocol and despite that the patient at 8:41. Disposition: DC-20 Time spent for discharge: 32 minutes - Discharge Diagnoses (1) Asystole Status: Acute (2) Respiratory failure Status: Acute (3) Metabolic acidosis Status: Acute (4) Hypoglycemia Status: Acute (5) Abdominal pain Status: Acute (6) Breast cancer metastasized to liver Status: Acute Qualifiers: Laterality: unspecified laterality Qualified Code(s): C50.919 - Malignant neoplasm of unspecified site of unspecified female breast; C78.7 - Secondary malignant neoplasm of liver and intrahepatic bile duct (7) Dehydration Status: Acute (8) Elevated transaminase level Status: Acute (9) Hyperbilirubinemia Status: Acute (10) Liver metastases Status: Acute (11) UTI (urinary tract infection) Status: Acute Qualifiers: Urinary tract infection type: acute cystitis (12) Colitis Status: Chronic (13) HTN (hypertension) Status: Chronic Qualifiers: Hypertension type: essential hypertension Qualified Code(s): I10 - Essential (primary) hypertension Core Measure Documentation - Palliative Care Palliative Care/ Comfort Measures: Not Applicable - Core Measures Any of the following diagnoses?: none Exam - Physical Exam Narrative exam: No pulse No respiration - Constitutional Vitals: Temp Pulse Resp BP Pulse Ox 97.7 F 157 H 79 H 121/59 50 L 11/14/18 04:00 11/14/18 08:30 11/14/18 08:30 11/14/18 08:30 11/14/18 08:30 Plan Follow up with: DYLAN MICHAELS MD [Staff Physician] - 3-5 Days
== END 2018-11-14 12:00 | DRG 435 ==
LOC: ED 20:17 → 3A 11-12 04:23 → CC1 11-13 17:51
PROVIDERS: ADMIT Internal Medicine; ATTEND Internal Medicine
PROC: 5A1935Z Respiratory Ventilation, Less than 24 Consecutive Hours (ICD-10-PCS; principal; 2018-11-13)
PROC: 0BH17EZ Insertion of Endotracheal Airway into Trachea, Via Natural or Artificial Opening (ICD-10-PCS; 2018-11-13)
PROC: 4A033R1 Measurement of Arterial Saturation, Peripheral, Percutaneous Approach (ICD-10-PCS; 2018-11-14)
DX: C78.7 Secondary malignant neoplasm of liver and intrahepatic bile duct (principal); J96.00 Acute respiratory failure, unspecified whether with hypoxia or hypercapnia; E43 Unspecified severe protein-calorie malnutrition; E87.2 Acidosis; N30.00 Acute cystitis without hematuria; C50.919 Malignant neoplasm of unspecified site of unspecified female breast; K52.9 Noninfective gastroenteritis and colitis, unspecified; E80.6 Other disorders of bilirubin metabolism; I10 Essential (primary) hypertension; I46.9 Cardiac arrest, cause unspecified; E16.2 Hypoglycemia, unspecified; E86.0 Dehydration; D69.6 Thrombocytopenia, unspecified; K64.9 Unspecified hemorrhoids; Z72.89 Other problems related to lifestyle; Z68.30 Body mass index [BMI] 30.0-30.9, adult; Z82.49 Family history of ischemic heart disease and other diseases of the circulatory system; Z88.0 Allergy status to penicillin; Z79.899 Other long term (current) drug therapy
CPT/HCPCS: 36415; 36600; 71045; 74018; 74177; 80048; 80053; 81001; 82803; 82962; 83735; 84100; 84484; 85007; 85025; 87070; 87076; 87186; 87205; 93005; 93010; 94002; 94003; 96374; 96375; G0378; J0171; J0610; J1170; J2270; J2370; J2405; J7030; J7070; Q0162; Q9967